=== PATIENT | female | born 2000 | race Caucasian/White ===

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

== ENCOUNTER → 2021-11-17 16:04 | Outpatient (CLI) | payer OTHER, SELFPAY ==
[2021-11-17 17:19] LABS: Basophils # 0.2 K/mm3 (0-0.2); Basophils % 3.8 % (0.1-2.0); Eosinophils # 0.1 K/mm3 (0.0-0.4); Eosinophils % 1.4 % (0.1-12.0); Hematocrit 46.2 % (37.0-47.0); Hemoglobin 14.9 g/dL (12.2-16.2); Lymphocytes % 38.9 % (10-50); Mean Corpuscular HGB Conc 32.2 g/dL (31.8-35.4); Mean Corpuscular Hemoglobin 30.5 pg (27.0-31.2); Mean Corpuscular Volume 94.5 fl (81-99); Mean Platelet Volume 9.2 fl (7.4-10.4); Monocytes # 0.4 K/mm3 (0.1-1.0); Monocytes % 6.7 % (1.7-9.3); Neutrophils # 2.6 K/mm3 (1.8-7.8); Neutrophils % 49.2 % (37.0-80.0); Platelet Count 287 K/mm3 (142-424); Red Blood Count 4.89 M/mm3 (4.20-5.40); Red Cell Distribution Width 12.9 % (11.5-17.5); White Blood Count 5.2 K/mm3 (4.5-13.0)
[2021-11-17 17:38] LABS: Chloride 102 mmol/L (98-107)
[2021-11-17 17:39] LABS: Potassium 4.2 mmoL/L (3.5-5.1); Sodium 138 mmol/L (136-145)
[2021-11-17 17:41] LABS: Alanine Aminotransferase 27 U/L (12-78); Aspartate Amino Transferase 24 U/L (14-36); Blood Urea Nitrogen 7 mg/dl (7-17); Estimated Glomerular Filt Rate 127 ml/min (>60); GFR (African American) 154 ML/MIN (>60)
[2021-11-17 17:42] LABS: Albumin Level 4.8 g/dl (3.5-5.0); Albumin/Globulin Ratio 1.8 (1.1-1.8); Alkaline Phosphatase 62 U/L (38-126); Anion Gap 12.2 mEq/L (5-15); Bilirubin,Total 0.3 mg/dl (0.2-1.3); Calcium 9.2 mg/dl (8.4-10.2); Carbon Dioxide 28 mmol/L (22.0-30.0); Globulin 2.6 g/dL (1.3-3.2); Glucose 93 mg/dl (74-100); Total Protein,Serum 7.4 g/dl (6.3-8.2)
[2021-11-17 17:59] LABS: Free Thyroxine Index 2.2 ug/dL (5.93-13.13); T4 (Thyroxine) 7.9 ug/dl (5.53-11.0); Triiodothryronine (T3) Uptake 28 % (23.5-40.5)
[2021-11-17 18:13] LABS: Thyroid Stimulating Hormone 2.98 uIU/mL (0.465-4.68)
== END ==
PROVIDERS: PCP Internal Medicine Adolescent Medicine; Visit Provider Nurse Practitioner Obstetrics & Gynecology
DX: R53.82 Chronic fatigue, unspecified (principal)
CPT/HCPCS: 36415; 80053; 84436; 84443; 84479; 85025

== ENCOUNTER 2023-05-27 19:18 | Emergency (ER) | payer OTHER, SELFPAY ==
[2023-05-27] VITALS (7 sets, daily range): BP systolic 116–151; BP diastolic 70–107; PULSE 72–97; RESP 12–18; TEMP 36.7–36.8; O2SAT 97–100; BMI 31.1
--- NOTE | 2023-05-27 19:18 | ECG_ITS ---
APPROVED REPORT Exam: Resting ECG HR:92 bpm ECG Measurements Heart Rate 92 AXES NV 138 P 50 QRSd 93 QRS 103 QT 339 T 2 QTc 388 Conclusion SINUS RHYTHM WITH SINUS ARRHYTHMIA RIGHT AXIS DEVIATION [QRS AXIS > 100] ABNORMAL ECG UNCONFIRMED REPORT Electronically signed by : Darron Elliott MD 05/28/2023 17:05:34
--- NOTE | 2023-05-27 19:58 | XR_ITS ---
PROCEDURE INFORMATION: Exam: XR Chest Exam date and time: 05/27/2023 8:10 PM Age: 22 years old Clinical indication: Sternal or substernal pain; Patient HX: HX oncce before, nonsmoker; Additional info: Chest pain TECHNIQUE: Imaging protocol: Radiologic exam of the chest. Views: 2 views. COMPARISON: CR XR RIBS RT MIN 3V W CXR1V 10/03/2019 11:44 PM FINDINGS: Lungs: Unremarkable. No consolidation. Pleural spaces: Unremarkable. No pleural effusion. No pneumothorax. Heart/Mediastinum: Unremarkable. No cardiomegaly. Diaphragm: Mild eventration of the right hemidiaphragm. Findings new. Bones/joints: Unremarkable. IMPRESSION: No evidence of acute intrathoracic abnormality.
[2023-05-27 20:13] LABS: Basophils # 0.1 K/mm3 (0-0.2); Basophils % 0.6 % (0.1-2.0); Eosinophils # 0.1 K/mm3 (0.0-0.4); Eosinophils % 0.9 % (0.1-12.0); Hemoglobin 15.8 g/dL (12.2-16.2); Lymphocytes # 2.9 K/mm3 (0.7-4.5); Lymphocytes % 36.2 % (10-50); Mean Corpuscular HGB Conc 35.1 g/dL (31.8-35.4); Mean Corpuscular Hemoglobin 32.7 pg (27.0-31.2); Mean Corpuscular Volume 93.1 fl (81-99); Mean Platelet Volume 9.4 fl (7.4-10.4); Monocytes # 0.7 K/mm3 (0.1-1.0); Monocytes % 8.9 % (1.7-9.3); Neutrophils # 4.3 K/mm3 (1.8-7.8); Neutrophils % 53.4 % (37.0-80.0); Platelet Count 287 K/mm3 (142-424); Red Blood Count 4.83 M/mm3 (4.20-5.40); Red Cell Distribution Width 12.7 % (11.5-17.5); White Blood Count 8.1 K/mm3 (4.8-10.8)
[2023-05-27 20:18] LABS: Anion Gap 19.1 mEq/L (5-15); Blood Urea Nitrogen 14 mg/dl (7-17); Carbon Dioxide 26 mmol/L (22.0-30.0); Chloride 99 mmol/L (98-107); Creatinine Clearance Estimated 135 mL/min (50-200); Estimated Glomerular Filt Rate 91 ml/min (>60); GFR (African American) 110 ML/MIN (>60); Glucose 100 mg/dl (74-100); Potassium 4.1 mmoL/L (3.5-5.1); Sodium 140 mmol/L (136-145)
[2023-05-27 20:32] LABS: Troponin I < 0.01 ng/ml (0.00-0.034)
--- NOTE | 2023-05-27 20:59 | HMH.EDGENADL ---
Discharge Plan Disposition Patient Disposition: Home, Self-Care Prescriptions Prescriptions: No Action levocetirizine 5 mg tablet 5 mg PO famotidine 20 mg tablet 20 mg PO spironolactone 100 mg tablet 100 mg PO DAILY Qty: 30 5RF hydroxyzine pamoate [Vistaril] 25 mg capsule 25 mg PO TID PRN (Reason: anxiety) Qty: 90 0RF atomoxetine [Strattera] 80 mg capsule 80 mg PO DAILY Qty: 30 1RF Xulane 150-35 mcg/24 hr patch weekly 1 patch transdermal Q7D Qty: 3 11RF Rx Instructions: apply once weekly for 3 weeks of a 4-week cycle Referrals Follow up/Referrals: Darron Elliott MD [Primary Care Provider] - See instructions Activity Restrictions/Add. Instructions Additional Instructions/Restrictions: Your work-up was unremarkable from a cardiopulmonary emergency standpoint. Please follow-up with your primary care doctor as needed. Return to the emergency part with any ongoing or persistent symptoms. Clinical Impressions Clinical Impression: Chest pain Discharge ED Provider: Polo Polanco General Adult HPI General Chief complaint: Chest Pain Stated complaint: Chest pain Time Seen by Provider: 05/27/23 20:50 Mode of Arrival: Wheelchair Source of Information: Patient Limitations: No Limitations Description of Symptoms (Recalled from ER Triage Doc. 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 The pain is constant, aching in nature, rated 10/10, that radiates to both shoulders, upper abdomen, and back. Patient reports that nothing makes the pain better or worse. History of Present Illness HPI narrative: Patient is a 22-year-old female presenting today with sudden chest pain that has since resolved. States this began suddenly about 2 hours prior to my evaluation. She states that it was nonpleuritic in nature did radiate to both shoulders and her back and her symptoms have 100% resolved. No exertional component to this she did feel some shortness of breath with it. No lower extremity swelling no recent immobilizations surgeries prolonged plane or car rides. No history of any DVT or PE. No history from a family standpoint of hypercoagulability. No hemoptysis. She is not on any control pills or any type of hormone replacement therapy. No fevers chills cough etc. No known diagnoses that she is aware of. Related Data Home Medications Medication Instructions Recorded Confirmed famotidine 20 mg tablet 20 mg PO 10/22/22 05/05/23 levocetirizine 5 mg tablet 5 mg PO 10/22/22 05/05/23 Previous Rx's Medication Instructions Recorded spironolactone 100 mg tablet 100 mg PO DAILY #30 tabs 12/16/22 hydroxyzine pamoate 25 mg capsule 25 mg PO TID PRN anxiety #90 caps 02/09/23 (Vistaril) norelgestromin 150 mcg-e.estradiol 1 patch transdermal Q7D #3 ea 03/02/23 35 mcg/24 hr weekly transderm patch (Xulane) atomoxetine 80 mg capsule 80 mg PO DAILY #30 caps 05/05/23 (Strattera) Allergies Allergy/AdvReac Type Severity Reaction Status Date / Time No Known Allergies Allergy Verified 05/05/23 13:30 [facility] Disclaimer: The information contained in this section may have been updated after the patient was seen, as this information can be updated by other users. Medical History (Updated 05/27/23 @ 21:03 by Polo Polanco MD) Attention Deficit Hyperactivity Disorder (ADHD) Generalized anxiety disorder Surgical History History of surgery Hx of tonsillectomy Family History Other Diabetes Heart attack Social History Smoking Status: Never smoker second hand exposure: No alcohol intake: current counseling given: No substance use type: denies use current occupational status: employed Travel in the last 8 weeks: None adopted: No caregiver/support
[2023-05-27 21:13] LABS: D-Dimer 0.78 ug/mL (0.0-0.5)
== END 2023-05-27 22:11 | disposition home or self-care (01) ==
PROVIDERS: Emergency Provider Student in an Organized Health Care Education/Training Program; PCP Internal Medicine Adolescent Medicine
DX: R07.89 Other chest pain (principal); F90.9 Attention-deficit hyperactivity disorder, unspecified type; F41.1 Generalized anxiety disorder
CPT/HCPCS: 71046; 80048; 84484; 85025; 85378; 93005; 99284

== ENCOUNTER → 2023-06-02 09:47 | Outpatient (CLI) | payer OTHER, SELFPAY ==
--- NOTE | 2023-06-02 09:54 | US_ITS ---
FINAL REPORT CLINICAL HISTORY: RUQ pain COMPARISON: None FINDINGS: Sonographic images of the right upper quadrant were obtained. The pancreas is partially obscured.The liver has an unremarkable appearance. Gallstones are present in the gallbladder. There is no evidence of biliary ductal dilatation.The common duct measures 2 mm. Limited images of the right kidney are unremarkable. IMPRESSION: Gallstones are present without evidence of biliary ductal dilatation. Reviewed, Interpreted and Dictated by Kvng Erwin III, MD Transcribed by Ofelia Sauer Authenticated and [facility]
== END ==
PROVIDERS: PCP Internal Medicine Adolescent Medicine; Visit Provider Nurse Practitioner Obstetrics & Gynecology
DX: R10.11 Right upper quadrant pain (principal)
CPT/HCPCS: 76705

== ENCOUNTER → 2023-06-08 13:26 | Outpatient (CLI) | payer OTHER, SELFPAY | PROVIDERS: PCP Internal Medicine Adolescent Medicine; Visit Provider Nurse Practitioner Family | DX: R00.2 Palpitations (principal) | CPT/HCPCS: 93225; 93226 ==

== ENCOUNTER → 2023-06-18 11:35 | Outpatient (CLI) | payer OTHER, SELFPAY ==
[2023-06-18 12:02] LABS: Basophils % 0.3 % (0.1-2.0); Eosinophils # 0.1 K/mm3 (0.0-0.4); Eosinophils % 1.2 % (0.1-12.0); Hematocrit 41.8 % (37.0-47.0); Hemoglobin 14.5 g/dL (12.2-16.2); Lymphocytes # 1.2 K/mm3 (0.7-4.5); Lymphocytes % 30.9 % (10-50); Mean Corpuscular HGB Conc 34.6 g/dL (31.8-35.4); Mean Corpuscular Hemoglobin 32.1 pg (27.0-31.2); Mean Corpuscular Volume 92.7 fl (81-99); Mean Platelet Volume 8.1 fl (7.4-10.4); Monocytes # 0.3 K/mm3 (0.1-1.0); Monocytes % 8.1 % (1.7-9.3); Neutrophils # 2.4 K/mm3 (1.8-7.8); Neutrophils % 59.5 % (37.0-80.0); Platelet Count 257 K/mm3 (142-424); Red Blood Count 4.51 M/mm3 (4.20-5.40); Red Cell Distribution Width 12.6 % (11.5-17.5)
[2023-06-18 12:56] LABS: Alanine Aminotransferase 26 U/L (12-78); Albumin Level 4.8 g/dl (3.5-5.0); Albumin/Globulin Ratio 1.9 (1.1-1.8); Alkaline Phosphatase 41 U/L (38-126); Anion Gap 15.1 mEq/L (5-15); Aspartate Amino Transferase 27 U/L (14-36); Bilirubin,Total 0.2 mg/dl (0.2-1.3); Blood Urea Nitrogen 11 mg/dl (7-17); Calcium 9.7 mg/dl (8.4-10.2); Carbon Dioxide 27 mmol/L (22.0-30.0); Chloride 101 mmol/L (98-107); Estimated Glomerular Filt Rate 91 ml/min (>60); GFR (African American) 110 ML/MIN (>60); Globulin 2.5 g/dL (1.3-3.2); Glucose 110 mg/dl (74-100); Potassium 4.1 mmoL/L (3.5-5.1); Sodium 139 mmol/L (136-145); Total Protein,Serum 7.3 g/dl (6.3-8.2)
[2023-06-18 13:08] LABS: Urine Pregnancy, HCG Qual. Negative (Negative)
== END ==
LOC: LAB 11:36
PROVIDERS: PCP Internal Medicine Adolescent Medicine; Visit Provider Surgery
DX: Z01.812 Encounter for preprocedural laboratory examination (principal); K80.20 Calculus of gallbladder without cholecystitis without obstruction
CPT/HCPCS: 36415; 80053; 81025; 85025

== ENCOUNTER 2023-07-01 08:05 | Day surgery (SDC) | payer OTHER, SELFPAY ==
[2023-06-29 13:24] VITALS: BMI 32.0
[2023-07-01] VITALS (9 sets, daily range): BP systolic 111–141; BP diastolic 66–92; PULSE 72–103; RESP 16–19; TEMP 36.4–36.7; O2SAT 92–100
--- NOTE | 2023-07-01 09:15 | EXP.ANES.CKL ---
[facility] Disclaimer: The information contained in this section may have been updated after the patient was seen, as this information can be updated by other users. Medical History Attention Deficit Hyperactivity Disorder (ADHD) Generalized anxiety disorder Surgical History History of surgery ovarian cysts Hx of tonsillectomy Family History Other Diabetes Heart attack Social History Smoking Status: Never smoker second hand exposure: No alcohol intake: current counseling given: No substance use type: denies use current occupational status: employed Travel in the last 8 weeks: None adopted: No caregiver/support person: No foster care: No household members: none housing: house lives independently: Yes marital status: single number of children: 0 number of grandchildren: 0 education level: high school current occupation: works at [employer] pets and animals: Yes (ukrainian maria) pets and animals: dog(s) Hx Recent Travel: No sexually active: Yes caffeine: Yes physical activity: none leonel/pentecostalism: Religious special leonel needs: No working smoke detector in home: Yes fire extinguisher in home: No carbon monox detector in home: No firearms in home: Yes do you feel safe at home: Yes victim of physical abuse: No victim of emotional abuse: No victim of sexual abuse: No would you like helpful sources: No [facility] Anesthesia Checklist Patient Identification Patient Identification: Arm Band Structural Data Admitted From: Home Planned Operative Procedure/s: Laparoscopic Cholecystectomy Consent for Planned Operative Procedure(s) Verified: Yes Verified Documents: Surgical Consent and History and Physical NPO Status Verified Time NPO: 00:00 Additional verifications Anesthesia Reactions: No Hx Blood Transfusions: No Blood Transfusion Reaction: No Airway Assessment Mallampati Score:: Class II C-Spine Mobility Assessed: Yes TMJ Mobility Assessed: Yes Dentition: Good Dentition Neurological Assessment Level of Consciousness: Awake and Alert Anesthesia Plan Anesthesia Risk discussed: Yes Anesthesia Plan: Verified ASA Class: II Anesthesia Type: General
[2023-07-01 09:28] LABS: Urine Pregnancy, HCG Qual. Negative (Negative)
--- NOTE | 2023-07-01 10:58 | P.OP_ITS ---
Date of procedure: 07/01/23 Pre-op Diagnosis:: Symptomatic cholelithiasis Post-op Diagnosis:: Chronic calculus cholecystitis Procedure performed:: Laparoscopic cholecystectomy Surgeon:: Nick Pierre MD TRAY CASTING MACHINE OPERATOR:: Jared Rosa Anesthesia: GETA Estimated blood loss (mL): 15 Operative findings:: Severe pericholecystic fat stranding Severe infundibular thickening Dome down approach utilized secondary to above findings Operative note:: After informed consent was obtained, the patient was taken to the operating room and placed in the supine position. General anesthesia was induced and the abdomen was prepped and draped in a sterile fashion. After infiltration with local anesthetic an infraumbilical incision was made. A Veress needle was placed in position. The abdomen was insufflated. A 5 mm optical trocar was placed in position. Under direct visualization, a 12 mm trocar was placed in the subxiphoid position and 2 additional 5 mm trocars were placed in the right upper quadrant. The gallbladder was elevated up and over the liver margin. Severe pericholecystic fat stranding with adhesions of omentum, stomach, small bowel, and colon were noted. Careful blunt dissection was utilized to free the gallbladder from these adhesions. As dissection continued in and around the infundibulum severe thickening was encountered. The cystic artery was transected free from surrounding tissue. A clip was placed on the artery and then it was transected distal to the clip with harmonic jalen. Secondary to the above findings the decision was made to proceed with a dome down approach . Harmonic jalen were utilized to dissect the gallbladder away from the liver margin. Endoloops (x 2) were placed at the infundibular margin. The gallbladder was transected distal to the second Endoloop with harmonic jalen. It was then placed in a retrieval bag and removed through the subxiphoid trocar site. The right upper quadrant was thoroughly irrigated. No active bleeding or bile leak was noted. Fascia at the subxiphoid trocar site was reapproximated utilizing the NeoClose device. The remaining trocars were removed. All wounds were irrigated and skin was closed with 4-0 Monocryl in a mattress fashion to facilitate hemostasis. The patient's anesthetic agents were reversed and extubation was completed prior to transfer to recovery in stable condition. Condition: stable Disposition: PACU Specimens:: Gallbladder and contents Complications:: No immediate
--- NOTE | 2023-07-01 11:03 | EXP.ANES.I ---
[facility] Anesthesia Record Part I Anesthesia Record I Intake, IV Amount: 1,200 Hydration: Adequate Estimated blood loss (mL): 15 Urine output (mL): 0 Blood Pressure: 123/66 SaO2: 92 Pulse Rate: 99 Airway Patency: Patent Respiratory Rate: 19 Temperature: 97.9 F Patient is:: Drowsy and Oral/Nasal airway Stable to PACU at:: 11:00
--- NOTE | 2023-07-02 08:06 | P.PNANES_ITS ---
[facility] Anesthesia Record Part II Anesthesia Record Part II Discharge Time: 11:30 Destination: Surgical Day Care (OP Surgery) PACU nurse assessment reviewed?: Yes Patient Condition:: Good Anesthesia Complications:: None Swallowing reflex intact?: Yes Airway Patency: Patent Cyanosis?: No Blood Pressure: 114/83 SaO2: 100 Respiratory Rate: 17 Pulse Rate: 72 Temperature: 98 F Mental Status: Alert & Oriented Pain level:: 4 Nausea and/or vomitting:: None Intake, IV Amount: 0 Hydration: Adequate
[2023-07-02 08:07] VITALS: BP 114/83; PULSE 72; RESP 17; TEMP 36.6; O2SAT 100
== END 2023-07-01 12:20 | disposition home or self-care (01) ==
PROVIDERS: PCP Internal Medicine Adolescent Medicine; Visit Provider Surgery
PROC: 0FT44ZZ Resection of Gallbladder, Percutaneous Endoscopic Approach (ICD-10-PCS; CPT 47562; principal; 2023-07-01 09:30)
DX: K80.10 Calculus of gallbladder with chronic cholecystitis without obstruction (principal)
CPT/HCPCS: 47562; 81025; 96374; J0131; J2405

== ENCOUNTER 2024-03-16 12:32 | Outpatient (CLI) | payer OTHER, SELFPAY ==
[2024-03-16 14:11] LABS: HCG,Quantitative 102 mIU/ml (0-5.42)
[2024-03-18 08:36] LABS: Progesterone 11.3 ng/mL (.)
== END 2024-03-16 23:59 | disposition home or self-care (01) ==
LOC: LAB 12:35
PROVIDERS: PCP Nurse Practitioner Family; Visit Provider Obstetrics & Gynecology
DX: N92.6 Irregular menstruation, unspecified (principal)
CPT/HCPCS: 36415; 84144; 84702

== ENCOUNTER 2024-03-18 10:02 | Outpatient (CLI) | payer OTHER, SELFPAY ==
[2024-03-18 11:33] LABS: HCG,Quantitative 254 mIU/ml (0-5.42)
== END 2024-03-18 23:59 | disposition home or self-care (01) ==
LOC: LAB 10:03
PROVIDERS: PCP Nurse Practitioner Family; Visit Provider Obstetrics & Gynecology
DX: Z34.90 Encounter for supervision of normal pregnancy, unspecified, unspecified trimester (principal)
CPT/HCPCS: 36415; 84702

== ENCOUNTER 2024-04-17 15:40 | Outpatient (CLI) | payer OTHER, SELFPAY | END 2024-04-17 23:59 | disposition home or self-care (01) | LOC: LAB.DROPOF 04-18 10:08 | PROVIDERS: PCP Obstetrics & Gynecology; Visit Provider Obstetrics & Gynecology | DX: Z34.90 Encounter for supervision of normal pregnancy, unspecified, unspecified trimester (principal) | CPT/HCPCS: 87086; 87088; 87186 ==

== ENCOUNTER 2024-04-27 14:40 | Outpatient (CLI) | payer OTHER, SELFPAY ==
[2024-04-27 15:08] LABS: Basophils # 0.1 K/mm3 (0-0.2); Basophils % 0.6 % (0.1-2.0); Eosinophils # 0.1 K/mm3 (0.0-0.4); Eosinophils % 0.8 % (0.1-12.0); Hematocrit 43.8 % (37.0-47.0); Hemoglobin 14.5 g/dL (12.2-16.2); Lymphocytes # 1.7 K/mm3 (0.7-4.5); Mean Corpuscular Hemoglobin 32.1 pg (27.0-31.2); Mean Corpuscular Volume 97.3 fl (81-99); Mean Platelet Volume 9.6 fl (7.4-10.4); Monocytes # 0.6 K/mm3 (0.1-1.0); Monocytes % 6.4 % (1.7-9.3); Neutrophils # 6.8 K/mm3 (1.8-7.8); Neutrophils % 74.2 % (37.0-80.0); Platelet Count 274 K/mm3 (142-424); Red Cell Distribution Width 13.6 % (11.5-17.5); White Blood Count 9.2 K/mm3 (4.8-10.8)
[2024-04-27 16:31] LABS: HIV (1&2) Antibody Rapid NONREACTIVE (NONREACTIVE)
[2024-04-29 07:12] LABS: HCV Ab Non Reactive (Non Reactive); Hepatitis B Surface Antigen Negative (Negative)
[2024-04-29 08:17] LABS: Rubella Antibodies, IgG 1.48 index (Immune >0.99)
[2024-04-29 10:11] LABS: Rapid Plasma Reagin Ab Titer Non Reactive titer (NonRea<1:1)
== END 2024-04-27 23:59 | disposition home or self-care (01) ==
LOC: LAB 14:41
PROVIDERS: PCP Nurse Practitioner Family; Visit Provider Obstetrics & Gynecology
DX: Z34.90 Encounter for supervision of normal pregnancy, unspecified, unspecified trimester (principal)
CPT/HCPCS: 36415; 85025; 86593; 86762; 86803; 86850; 87340; 87389

== ENCOUNTER 2024-07-06 10:56 | Outpatient (CLI) | payer OTHER, SELFPAY ==
[2024-07-06 11:19] LABS: Basophils % 0.3 % (0.1-2.0); Eosinophils # 0.1 K/mm3 (0.0-0.4); Eosinophils % 0.7 % (0.1-12.0); Hematocrit 37.6 % (37.0-47.0); Hemoglobin 12.8 g/dL (12.2-16.2); Lymphocytes # 1.6 K/mm3 (0.7-4.5); Mean Corpuscular Hemoglobin 31.5 pg (27.0-31.2); Mean Corpuscular Volume 92.9 fl (81-99); Mean Platelet Volume 10.1 fl (7.4-10.4); Monocytes # 0.5 K/mm3 (0.1-1.0); Neutrophils # 7.5 K/mm3 (1.8-7.8); Neutrophils % 77.9 % (37.0-80.0); Platelet Count 222 K/mm3 (142-424); Red Blood Count 4.05 M/mm3 (4.20-5.40); Red Cell Distribution Width 13.2 % (11.5-17.5); White Blood Count 9.6 K/mm3 (4.8-10.8)
[2024-07-06 11:45] LABS: Alanine Aminotransferase 18 U/L (12-78); Albumin Level 3.7 g/dl (3.5-5.0); Albumin/Globulin Ratio 1.6 (1.1-1.8); Alkaline Phosphatase 56 U/L (38-126); Anion Gap 14.7 mEq/L (5-15); Aspartate Amino Transferase 23 U/L (14-36); Bilirubin,Total 0.3 mg/dl (0.2-1.3); Blood Urea Nitrogen 6 mg/dl (7-17); Calcium 9.5 mg/dl (8.4-10.2); Carbon Dioxide 23 mmol/L (22.0-30.0); Chloride 103 mmol/L (98-107); Estimated Glomerular Filt Rate 154 ml/min (>60); GFR (African American) 187 ML/MIN (>60); Globulin 2.3 g/dL (1.3-3.2); Glucose 144 mg/dl (74-100); Potassium 3.7 mmoL/L (3.5-5.1); Sodium 137 mmol/L (136-145); Uric Acid 3.9 mg/dl (2.5-6.2)
[2024-07-06 12:10] LABS: Activated Partial Thrombo Time 26.8 seconds (22.8-30.6); Fibrinogen 449 mg/dL (229.9-363.5); INR 0.89 (0.9-1.1); Prothrombin Time 10.1 seconds (10.1-12.5)
[2024-07-06 12:27] LABS: Total Volume,Urine 1950 mL (600-1600)
[2024-07-06 14:00] LABS: Total Protein 24 Hour,Urine 312 mg/24 hr (40-90)
== END 2024-07-06 23:59 | disposition home or self-care (01) ==
LOC: LAB 10:56
PROVIDERS: PCP Nurse Practitioner Family; Visit Provider Obstetrics & Gynecology
DX: O13.9 Gestational [pregnancy-induced] hypertension without significant proteinuria, unspecified trimester (principal)
CPT/HCPCS: 80048; 80053; 84155; 84450; 84460; 84550; 85025; 85384; 85610; 85730

== ENCOUNTER 2024-07-13 14:45 | Outpatient (CLI) | payer OTHER, SELFPAY ==
--- NOTE | 2024-07-13 14:45 | US_ITS ---
PROCEDURE: US OB /MATERNAL DETAIL CLINICAL INDICATION: 20 week anatomy scan-US OB Complete COMPARISON: No exams were available for comparison FINDINGS: Transabdominal sonographic images of the pelvis were obtained. From her established due date she is 20 weeks 6 days. Single viable intrauterine gestation. Breech position. Placenta: Anteriorplacenta grade 1. There is an average amount of fluid. The cervix appears satisfactory. Closed and measuring 3.64 cm in length. Complete survey performed and was unremarkable on the submitted images as in PACS. No discrete anomalies identified on survey imaging by technologist. Active fetus. Three-vessel cord with satisfactory umbilical cord insertion. 4- chamber heart noted. Situs, aortic arch, three-vessel view appear normal. Survey of brain & ventricles Unremarkable. Cerebellum, thalamus, choroid plexus, cisterna magna appear normal. Face and neck survey unremarkable. Profile, nasion, lips and nose appeared normal. Diaphragm and chest views unremarkable. Abdomen: Both kidneys noted and unremarkable. Stomach and bladder noted and satisfactory. Minimal bilateral renal pelvis dilation measuring up to 3.5 mm. Spine: Survey of the spine satisfactory with no anomalies identified nor imaged. Cervical, thoracic, lower spine appear normal. Both arms and legs noted. Amniotic Fluid: Adequate. MVP 4.25 cm Measurements: Average ultrasound age 21weeks 5days. Estimated due date by ultrasound age 0411/18/2024. Estimated weight 442g BPD = 21weeks 3days HC = 21weeks 4days AC = 22weeks 2days FL = 21weeks 1day Growth Percentile= 86 Heart Rate = 155bpm Cerebellum = 21weeks 3days Humerus = 20weeks 6days HC/AC is 1.11 FL/BPD is 0.69 FL/AC is 0.2 IMPRESSION: 1. Viable fetus in the breech presentation with an anterior placenta grade 1. 2. The fluid is within normal limits with an MVP 4.25 cm 3. Anatomical scan appears normal. Cardiac views were incomplete and should be redone began in 2-3 weeks. 4. There is minimal bilateral renal pelvis dilation and since this is less than 4 mm, follow-up is not necessary. 5. biometry is consistent with the dates. Dictated by: Joe Reinoso MD 07/14/2024 11:02 Joe Reinoso MD in [place] 07/14/2024 11:02
== END 2024-07-13 23:59 | disposition home or self-care (01) ==
LOC: RAD 14:45
PROVIDERS: PCP Nurse Practitioner Family; Visit Provider Obstetrics & Gynecology
DX: O99.212 Obesity complicating pregnancy, second trimester (principal); Z36.3 Encounter for antenatal screening for malformations; Z3A.20 20 weeks gestation of pregnancy
CPT/HCPCS: 76811

== ENCOUNTER 2024-07-28 13:33 | Outpatient (CLI) | payer OTHER, SELFPAY ==
--- NOTE | 2024-07-28 13:33 | US_ITS ---
PROCEDURE: US OB >= 14 WEEKS FETUS CLINICAL INDICATION: 2-3 week repeat anatomy, cardiac views COMPARISON: US US OB /MATERNAL DETAIL from 07/13/2024 FINDINGS: Transabdominal sonographic images of the pelvis were obtained. The following parameters are obtained: From her established due date she is 23weeks 0 days Viable fetus in the cephalic presentation with an anterior placenta grade 1. The cervix measures 4.07 cm heart rate: 147bpm bpm. Amniotic fluid: MVP 3.44 cm No obvious anomalies evident. profile seen, stomach, bladder, kidneys, three-vessel cord, four chamber heart appear normal. cardiac scan: Four-chamber heart, LVOT, RVOT, three-vessel view appear normal. IMPRESSION: 1. Viable fetus in the cephalic presentation with an anterior placenta grade 1. 2. The fluid is within normal limits with an MVP 3.44 cm. 3. Limited anatomical scan appears normal. Complete views of the heart were seen today and the cardiac scan appears normal. 4. The previously described mild renal pelvis dilatation is not seen today. Dictated by: Joe Reinoso MD 07/28/2024 18:08 Joe Reinoso MD in [place] 07/28/2024 18:08
== END 2024-07-28 23:59 | disposition home or self-care (01) ==
LOC: RAD 13:33
PROVIDERS: PCP Nurse Practitioner Family; Visit Provider Obstetrics & Gynecology
DX: O10.912 Unspecified pre-existing hypertension complicating pregnancy, second trimester (principal); Z3A.23 23 weeks gestation of pregnancy
CPT/HCPCS: 76805

== ENCOUNTER 2024-08-24 15:24 | Outpatient (CLI) | payer OTHER, SELFPAY ==
[2024-08-24 16:41] LABS: Basophils % 0.2 % (0.1-2.0); Eosinophils # 0.1 K/mm3 (0.0-0.4); Eosinophils % 0.8 % (0.1-12.0); Hematocrit 34.8 % (37.0-47.0); Hemoglobin 11.5 g/dL (12.2-16.2); Lymphocytes # 1.3 K/mm3 (0.7-4.5); Lymphocytes % 15.1 % (10-50); Mean Corpuscular Hemoglobin 29.7 pg (27.0-31.2); Mean Corpuscular Volume 89.9 fl (81-99); Mean Platelet Volume 11.9 fl (7.4-10.4); Monocytes # 1.1 K/mm3 (0.1-1.0); Monocytes % 12.5 % (1.7-9.3); Neutrophils # 5.9 K/mm3 (1.8-7.8); Platelet Count 247 K/mm3 (142-424); Red Blood Count 3.87 M/mm3 (4.20-5.40); Red Cell Distribution Width 12.4 % (11.5-17.5); White Blood Count 8.4 K/mm3 (4.8-10.8)
[2024-08-24 16:52] LABS: Glucose 1 Hour 139 mg/dL (74-100)
[2024-08-25 12:19] LABS: RPR W/RFX Titers Nonreactive (Nonreactive)
== END 2024-08-24 23:59 | disposition home or self-care (01) ==
LOC: LAB 15:25
PROVIDERS: PCP Nurse Practitioner Family; Visit Provider Obstetrics & Gynecology
DX: Z34.90 Encounter for supervision of normal pregnancy, unspecified, unspecified trimester (principal)
CPT/HCPCS: 36415; 82947; 85025; 86592

== ENCOUNTER 2024-08-28 11:53 | Outpatient (CLI) | payer OTHER, SELFPAY ==
[2024-08-28 11:58] VITALS: BMI 40.4
[2024-08-28 12:16] VITALS: BP 138/78; PULSE 113; RESP 19; TEMP 36.6; O2SAT 96; BMI 40.6
[2024-08-28 12:17] LABS: Microscopic, Urine URINE MICROSCOPIC (MICROSCOPIC)
[2024-08-28 12:23] LABS: Appearance,Urine CLEAR (Clear); Bilirubin,Urine Negative (Negative); Blood, Urine Negative (Negative); Color,Urine YELLOW (Yellow); Glucose,Urine (UA) TRACE (Negative); Ketones,Urine Negative (Negative); Leukocyte Esterase,Urine Negative (Negative); Nitrate,Urine Negative (Negative); PH,Urine 7.5 (5.0-8.5); Protein,Urine TRACE (Negative); Urobilinogen,Urine 0.2 EU/dl (0.2)
[2024-08-28 12:31] VITALS: BP 132/84; PULSE 102; RESP 20; O2SAT 95
[2024-08-28 12:46] VITALS: BP 131/81; PULSE 102; RESP 17; O2SAT 98
[2024-08-28 12:46] LABS: Bacteria,Urine Trace /lpf
[2024-08-28] MEDS: ACETAMINOPHEN 500MG TAB 1000 MG PO (12:48)
[2024-08-28 12:57] LABS: Basophils % 0.3 % (0.1-2.0); Eosinophils % 0.5 % (0.1-12.0); Hematocrit 33.9 % (37.0-47.0); Hemoglobin 11.5 g/dL (12.2-16.2); Lymphocytes # 1.1 K/mm3 (0.7-4.5); Lymphocytes % 15.2 % (10-50); Mean Corpuscular HGB Conc 33.9 g/dL (31.8-35.4); Mean Corpuscular Hemoglobin 29.6 pg (27.0-31.2); Mean Corpuscular Volume 87.4 fl (81-99); Mean Platelet Volume 12.1 fl (7.4-10.4); Monocytes # 0.9 K/mm3 (0.1-1.0); Monocytes % 11.5 % (1.7-9.3); Neutrophils # 5.4 K/mm3 (1.8-7.8); Neutrophils % 71.4 % (37.0-80.0); Platelet Count 227 K/mm3 (142-424); Red Blood Count 3.88 M/mm3 (4.20-5.40); Red Cell Distribution Width 12.5 % (11.5-17.5); White Blood Count 7.5 K/mm3 (4.8-10.8)
[2024-08-28 13:08] LABS: Albumin Level 3.6 g/dl (3.5-5.0); Chloride 106 mmol/L (98-107); Potassium 3.5 mmoL/L (3.5-5.1); Sodium 135 mmol/L (136-145)
[2024-08-28 13:32] LABS: Activated Partial Thrombo Time 27.7 seconds (22.5-28.5); Fibrinogen 486 mg/dL (208.1-352.0); INR 0.88 (0.9-1.1); Prothrombin Time 9.8 seconds (9.2-12.1)
[2024-08-28 13:50] LABS: Barbiturates Screen,Urine Negative ng/ml (<200); Benzodiazepines Screen,Urine Negative ng/ml (<200)
[2024-08-28 13:51] LABS: Amphetamine/Metha Screen,Urine Negative ng/ml (<1000)
[2024-08-28 13:52] LABS: Cannabinoid Screen,Urine Negative ng/ml (<50); Methadone Screen,Urine Negative ng/ml (<300)
[2024-08-28 13:53] LABS: Alanine Aminotransferase 17 U/L (12-78); Alkaline Phosphatase 74 U/L (38-126); Anion Gap 12.5 mEq/L (5-15); Aspartate Amino Transferase 20 U/L (14-36); Blood Urea Nitrogen 7 mg/dl (7-17); Carbon Dioxide 20 mmol/L (22.0-30.0); Creatinine Clearance Estimated 132 mL/min (50-200); Estimated Glomerular Filt Rate 153 ml/min (>60); GFR (African American) 185 ML/MIN (>60)
[2024-08-28 13:53] LABS: Cocaine Screen,Urine Negative ng/ml (<300)
[2024-08-28 13:54] LABS: Opiate Screen,Urine Negative ng/ml (<300)
[2024-08-28 13:54] LABS: Albumin/Globulin Ratio 1.4 (1.1-1.8); Bilirubin,Total 0.1 mg/dl (0.2-1.3); Globulin 2.6 g/dL (1.3-3.2); Glucose 108 mg/dl (74-100); Total Protein,Serum 6.2 g/dl (6.3-8.2)
[2024-08-28 13:55] LABS: Phencyclidine Screen,Urine Negative ng/ml (<25)
[2024-08-28 15:41] LABS: Creatinine,Urine Random 99 mg/dL (Not Estab.)
[2024-08-28 17:15] LABS: Uric Acid 3.8 mg/dl (2.5-6.2)
== END 2024-08-28 14:36 | disposition home or self-care (01) ==
LOC: OBOUT 11:55 → OB 11:57
PROVIDERS: PCP Nurse Practitioner Family; Visit Provider Obstetrics & Gynecology
DX: O10.912 Unspecified pre-existing hypertension complicating pregnancy, second trimester (principal); Z3A.27 27 weeks gestation of pregnancy
CPT/HCPCS: 36415; 80053; 80307; 81001; 82570; 84156; 84550; 85025; 85384; 85610; 85730; G0463

== ENCOUNTER 2024-09-06 07:59 | Outpatient (CLI) | payer OTHER, SELFPAY ==
[2024-09-06 09:38] LABS: Glucose,Fasting 95 mg/dl (74-100)
[2024-09-06 10:38] LABS: Glucose 1 Hour 197 mg/dL (74-100)
[2024-09-06 10:45] LABS: Glucose 2 Hour 197 mg/dL (74-100)
[2024-09-06 12:03] LABS: Glucose 3 Hour 56 mg/dL (74-100)
--- NOTE | 2024-09-06 14:50 | US_ITS ---
PROCEDURE: US OB BIOPHYSICAL PROFILE CLINICAL INDICATION: Chronic Hypertension COMPARISON: US US OB /MATERNAL DETAIL from 07/13/2024 US US OB >= 14 WEEKS FETUS from 07/28/2024 FINDINGS: Transabdominal sonographic images of the uterus were obtained. From her established due date she is 28weeks 5days. The following parameters are obtained: Viable Fetus in the cephalic presentation with an anterior placenta grade 1. Average ultrasound age is 29weeks 5days Estimated weight 1,439g, 3 lb 3 oz The cervix measures 3.33 cm. Measurements: heart Rate = 140bpm BPD = 29weeks 1day, 51 percentile HC = 29weeks 4days, 43 percentile AC = 29weeks 6days, 76 percentile FL = 29weeks 6days, 65 percentile HC/AC is 1.06 FL/BPD is 0.78 FL/AC is 0.22 74 percentile Amniotic fluid index: 13.96cm, MVP 4.73 cm Qualitative AFV:2 Breathing movements: 2 Gross Body Movements: 2 Tone: 2 Biophysical profile score: 8 No obvious anomalies evident.Kidneys, profile, stomach, bladder, four-chamber heart, three-vessel cord appear normal. There continues to be minimal renal pelvis dilation measuring 4.2 mm and 3.9 mm. IMPRESSION: 1. Viable fetus in the cephalic presentation with an anterior placenta grade 1. 2. The fluid is within normal limits with an amniotic fluid index 13.96 cm, MVP 4.73 cm. 3. Biophysical profile 8/8 with good breathing movement and movement seen. 4. There has been good interval growth with the fetus currently 74th percentile. 5. Limited anatomical scan appears normal. 6. There continues to be minimal bilateral renal pelvis dilation measuring 4.2 mm and 3.9 mm. Dictated by: Joe Reinoso MD 09/06/2024 16:25 Joe Reinoso MD in [facility] 09/06/2024 16:25
== END 2024-09-06 23:59 | disposition home or self-care (01) ==
LOC: RAD 08:01
PROVIDERS: PCP Nurse Practitioner Family; Visit Provider Obstetrics & Gynecology
DX: O10.913 Unspecified pre-existing hypertension complicating pregnancy, third trimester (principal); O99.213 Obesity complicating pregnancy, third trimester; Z3A.28 28 weeks gestation of pregnancy
CPT/HCPCS: 36415; 76816; 76819; 82951

== ENCOUNTER 2024-09-16 03:55 | Emergency (ER) | payer OTHER, SELFPAY ==
[2024-09-16 03:57] VITALS: BP 132/96; PULSE 128; RESP 20; TEMP 36.9; O2SAT 98; BMI 41.5
[2024-09-16 04:12] VITALS: BP 138/83; PULSE 122; RESP 22; O2SAT 97
[2024-09-16 04:15] LABS: Coronavirus 19, PCR Not Detected (NotDetected); Influenza A, PCR Not Detected (NotDetected); Influenza B, PCR Not Detected (NotDetected)
--- NOTE | 2024-09-16 04:15 | ED_ITS ---
Discharge Plan Disposition Patient Disposition: Home, Self-Care Condition: Good Prescriptions Prescriptions: No Action Classic 28 mg iron- 800 mcg tablet 1 tab PO DAILY cetirizine 10 mg tablet 10 mg PO DAILY amoxicillin-pot clavulanate 875-125 mg tablet 1 tab PO BID Patient Comments: TAKE ONE TABLET BY MOUTH EVERY TWELVE HOURS FOR 10 DAYS -- FINISH ALL MEDICINE -- --TAKE WITH FOOD-- glyburide 2.5 mg tablet 2.5 mg PO DAILY Qty: 30 4RF Rx Instructions: Take 30 minutes before breakfast or first meal of the day labetalol 200 mg tablet 200 mg PO Q12H Qty: 120 1RF (DME) blood-glucose meter [Accu-Chek Guide Glucose Meter] Misc See Rx Instructions .ROUTE .MEDSUPPLY Qty: 1 0RF Rx Instructions: 4x daily (DME) lancing device with lancets [Accu-Chek Soft Dev Lancets] Kit See Rx Instructions .ROUTE .MEDSUPPLY Qty: 1 4RF Rx Instructions: 4x daily (DME) Accu-Chek SmartView Test Strip Strip See Rx Instructions .ROUTE .MEDSUPPLY Qty: 100 2RF Rx Instructions: 4x daily Referrals Follow up/Referrals: Cristy Thornton APRN [Primary Care Provider] - See instructions Activity Restrictions/Add. Instructions Additional Instructions/Restrictions: You were evaluated in the ER and are appropriate for discharge at this time. Go directly to OB triage for further OB evaluation. Drink plenty of fluids including water, Gatorade, Pedialyte. Follow-up with OB as scheduled, continue all home medications as previously prescribed. Return to the ER with new, worsening, or otherwise concerning symptoms Clinical Impressions Clinical Impression: Nausea, vomiting, and diarrhea, and not yet delivered in third trimester, Chronic hypertension affecting , Proteinuria Instructions Patient Instructions: DI for Nausea -- Adult Print Language Print Language: Uzbek Discharge ED Provider: Jason Mann Adult HPI General Chief complaint: Nausea/Vomiting/Diarrhea Stated complaint: vomiting, 30 wks antepartum Time Seen by Provider: 09/16/24 04:00 Mode of Arrival: Ambulatory Source of Information: Patient Limitations: No Limitations Description of Symptoms (Recalled from ER Triage Doc. by RN): Pt presents to ED for N/V/D X 5 hours. Pt is 30 weeks w/ hx of gestational diabetes and hypertension. Pt's mother states OB referred them to ED. Pt states she has stomach pain but thinks it's from vomiting. Rates pain 01/09. informed. Pt is A&O*4 and family is bedside. History of Present Illness HPI narrative: 24-year-old female G1, P0 30 weeks presents to the ER for concerns of vomiting since approximately 5 to 6 hours prior to arrival. Patient reports she has had multiple episodes of emesis, initially it was food she had just eaten, since then it has been clear mucus. Nonbloody, nonbilious. She does report episodes of diarrhea since that time as well, nonbloody, nonmelanotic. Patient reports she has her chronic pains but no specific new abdominal pain. She describes generalized discomfort in her stomach as nausea. She denies cramping, contractions, or back pain. She has no dysuria or hematuria, no vaginal bleeding or fluid leakage. She has no fevers or chills, no headache or dizziness, no numbness tingling or weakness, she states she is currently on Augmentin for cough and only has a few doses left of that. Reports no significant change in her upper respiratory symptoms. Augmentin was prescribed without a chest x-ray from primary care. Patient does have a history of cholecystectomy. No medications taken prior to arrival. Patient reports she took her home labetalol approximately 4 hours prior to having vomiting. She has not yet started the glyburide that was prescribed at her last appointment. Related Data Home Medications ?Medication ?Instructions ?Recorded ?Confirmed vits no.126-ferrous fum 1 tab PO DAILY 04/17/24 09/16/24 28 mg iron-folic acid 800 mcg tablet (Classic ) cetirizine 10 mg tablet 10 mg PO DAILY 05/31/24 09/16/24 amoxicillin 875 mg-potassium 1 tab PO BID 09/06/24 09/16/24 clavulanate 125 mg tablet Previous Rx's ?Medication ?Instructions ?Recorded labetalol 200 mg tablet 200 mg PO Q12H #120 tabs 09/04/24 blood sugar diagnostic (Accu-Chek #100 ea 09/06/24 SmartView Test Strips) blood-glucose meter (Accu-Chek #1 ea 09/06/24 Guide Glucose Meter) lancing device with lancets kit #1 ea 09/06/24 (Accu-Chek Softclix Lancing Device+Lancets kit) glyburide 2.5 mg tablet 2.5 mg PO DAILY #30 tabs 09/13/24 Allergies Allergy/AdvReac Type Severity Reaction Status Date / Time No Known Allergies Allergy Verified 09/13/24 12:54 [facility] Disclaimer: The information contained in this section may have been updated after the patient was seen, as this information can be updated by other users. Medical History (Updated 09/16/24 @ 04:57 by Jason Mann MD) Gestational diabetes mellitus (GDM) affecting , antepartum Chronic hypertension affecting Maternal obesity syndrome, antepartum Attention Deficit Hyperactivity Disorder (ADHD) Generalized anxiety disorder Surgical History History of laparoscopic cholecystectomy History of surgery Hx of tonsillectomy Family History Other Diabetes Heart attack Social History Smoking Status: Former smoker tobacco type: e-cigarettes second hand exposure: No alcohol intake: current alcohol intake frequency: a few times a month counseling given: No substance use type: denies use current occupational status: employed Travel in the last 8 weeks: None adopted: No caregiver/support person: No foster care: No household members: none housing: house lives independently: Yes marital status: single number of children: 0 number of grandchildren: 0 education level: high school current occupation: works at [employer] pets and animals: Yes (slovak maria) pets and animals: dog(s) Hx Recent Travel: No sexually active: Yes caffeine: Yes physical activity: none leonel/baptism: Yarsanism special leonel needs: No working smoke detector in home: Yes fire extinguisher in home: No carbon monox detector in home: No firearms in home: Yes do you feel safe at home: Yes victim of physical abuse: No victim of emotional abuse: No victim of sexual abuse: No would you like helpful sources: No Other Medical History Have you received the Flu Vaccine for this season: No Have you received the Pneumonia Vaccine: No ROS Obtained: Yes Systems reviewed as appropriate & no additional complaints except as documented per HPI Physical Exam General General appearance: alert and in no apparent distress Head Head exam: atraumatic and normocephalic Eye Eye exam: Present PERRL and EOMI ENT ENT exam: Present mucous membranes moist Neck Neck exam: Present normal inspection and full ROM Chest Chest inspection: Present symmetric chest wall rise Respiratory Respiratory exam: Present normal lung sounds bilaterally; Absent respiratory distress, wheezes or stridor Cardiovascular Cardiovascular exam: Present normal rhythm and tachycardia Abdominal Exam Abdominal exam: Present soft; Absent distention, tenderness, guarding or rebound Comment: Gravid abdomen, uterus above the umbilicus Extremities Exam Extremities exam: Present full ROM; Absent edema or calf tenderness Neurological Exam Neurological exam: Present alert and oriented X3; Absent motor sensory deficit Psychiatric Psychiatric exam: Present normal affect and normal mood Skin Skin exam: Present warm and dry Medical Decision Making Medical Records Medical records reviewed: Yes I reviewed the patient's medical records. Screening: Per USPSTF and CDC recommendations, given the prevalence of disease in our region, it is our hospital?s policy to screen for HIV and viral Hepatitis for all patients aged 18 and over and those with ongoing risk factors. MR Comment: Most recent OB note from 09/13/2024, 3 days ago, reviewed by me. Patient received Tdap booster. She was 29 weeks 5 days. She had reactive NST at that visit. Plan to continue NSTs until 32 weeks, weekly. Patient has chronic hypertension taking labetalol 200 mg p.o. every 12 hours, gestational diabetes starting glyburide. Charles Inquiry Pt receiving controlled substance: No Vital Signs: 09/16/24 03:57 09/16/24 04:12 09/16/24 04:55 Temperature 98.4 F 98.3 F Temperature Source Oral Oral Pulse Rate 122 H 103 H Pulse Rate [Left] 128 H Respiratory Rate 20 22 15 Blood Pressure 138/83 138/83 Blood Pressure [Right Arm] 132/96 H Blood Pressure Mean [Right Arm] 108 Blood Pressure Position Sitting 02 Sat by Pulse Oximetry 98 97 97 Oxygen Delivery Method Room Air Room Air Room Air Lab Data Lab Results 09/16/24 04:03: Urine Color Yellow, Urine Appearance Clear, Urine pH 6.0, Ur Specific [place] >= 1.030, Urine Protein 1+ A, Urine Glucose (UA) Trace, Urine Ketones 1+, Urine Blood Negative, Urine Nitrate Negative, Urine Bilirubin Negative, Urine Urobilinogen 0.2, Ur Leukocyte Esterase Negative, Urine RBC None, Urine WBC Occasional, Ur Squamous Epith Cells 10-20, Urine Bacteria Trace 09/16/24 04:07: WBC 13.3 H, RBC 4.55, Hgb 12.8, Hct 38.6, MCV 84.8, MCH 28.1, MCHC 33.2, RDW 12.7, Plt Count 315, MPV 12.3 H, Neut % (Auto) 88.0 H, Lymph % (Auto) 3.7 L, [place] % (Auto) 7.1, Eos % (Auto) 0.1, Baso % (Auto) 0.2, Neut # (Auto) 11.7 H, Lymph # (Auto) 0.5 L, [place] # (Auto) 0.9, Eos # (Auto) 0.0, Baso # (Auto) 0.0, Sodium 136, Potassium 4.4, Chloride 108 H, Carbon Dioxide 16 L, A nion Gap 16.4 H, BUN 10, Creatinine 0.40 L, Estimated Creat Clear 165, Estimated GFR 198, Est GFR ( Amer) 239, Glucose 127 H, Lactate 1.9, Calcium 8.9, Total Bilirubin 0.2, AST 30, ALT 28, Alkaline Phosphatase 98, Total Protein 7.2, Albumin 4.0, Globulin 3.2, Albumin/Globulin Ratio 1.3, Lipase 128, SARS-CoV-2 (PCR) Not detected, Influenza A Untype (PCR) Not detected, Influenza Type B (PCR) Not detected 09/16/24 04:07 09/16/24 04:07 Orders (Tests/Meds): ED MEDICATIONS Discontinued Medications Generic Name Dose Route Start Last Admin Trade Name Freq PRN Reason Stop Dose Admin Doxylamine Succinate/Pyridoxine 1 tab 09/16/24 04:05 09/16/24 04:22 Doxylamine 10mg/Pyridoxine 10mg Tablet PO 09/16/24 04:06 1 tab ONCE ONE Administration Lactated Ringer's 500 mls @ 999 mls/hr 09/16/24 04:04 09/16/24 04:16 Lactated Ringer's 500ml IV 09/16/24 04:34 999 mls/hr .Q31M ONE Administration ORDERS Category Date Time Status POCUS Point of Care (ER Only) Stat Exams 09/16/24 04:03 Ordered CBC w/Auto Diff [Complete Blood Count Auto Diff] Stat Lab 09/16/24 04:07 Received CMP [Comprehensive Metabolic Panel] Stat Lab 09/16/24 04:07 Received Lactic Acid Stat Lab 09/16/24 04:07 Received Lipase Stat Lab 09/16/24 04:07 Received Rapid PCR Covid and Flu A/B Stat Lab 09/16/24 04:07 Received Urinalysis and Microscopic Stat Lab 09/16/24 04:03 Ordered Medical Decision Narrative: In summary, this 24-year-old female G1, P0 with known gestational diabetes, chronic hypertension in , ADHD, all of which are comorbidities of current condition and may not be at goal therapy presents to the emergency department today with vomiting. On initial evaluation patient is tachycardic but otherwise hemodynamically stable, blood pressure on arrival 132/96 consistent with her known hypertension, abdomen is soft, nontender, gravid with uterus above the umbilicus, benign abdomen on exam, no peripheral edema, no calf tenderness or swelling. Differential diagnosis includes but is not limited to viral syndrome, electrolyte abnormality, dehydration, pancreatitis, lactic acidosis, also considered urinary tract infection though this should be much less likely since patient is actively on Augmentin, considered proteinuria, glucosuria, HELLP, mesenteric adenitis less likely since patient has no pain, appendicitis less likely since patient has no pain or fever. Based on these concerns, I ordered serum labs, urine study, and performed vdxoh-ma-ypyx ultrasound. I considered radiographic studies but do not believe other imaging is indicated at this time since patient has a benign abdomen and the risk of radiation outweighs the benefit at this time with her extremely reassuring exam. Patient received LR, doxylamine/pyridoxine initially for treatment. [id number]-ef-[id number] ultrasound performed by me at bedside demonstrates live intrauterine , fetus is active, heart rate 156, no abnormalities appreciated. See procedure note. Labs personally reviewed demonstrate leukocytosis WBC 13.3, up from 7.5 on 08/28/2024, no anemia, platelets normal at 315 reassuring against HELLP. Patient has mildly elevated anion gap, possibly related to ketosis, BUN and creatinine reassuring against kidney dysfunction, lactate normal at 1.9, lipase normal at 128. Liver enzymes normal. Urinalysis negative for findings of infection but patient does have 1+ protein, previously she has had negative or only trace protein. Also has 1+ ketones consistent with her emesis and diarrhea as well as her mild anion gap. With her elevated blood pressure the proteinuria increases my concern for preeclampsia. Patient's tachycardia has improved with IV fluids and she is drinking water, tolerating oral intake in the ER at this time. Heart rate 99-105. She is resting comfortably. I called OB on-call and discussed this case with Dr. Aranda including my concern for patient having proteinuria and hypertension in the ER though she is not having abdominal pain, no severe signs or symptoms such as HELLP, headache, altered mental status, or peripheral swelling, and that labs are overall otherwise reassuring aside from evidence of mild ketosis. She recommended that once I have cleared the patient that the patient go up to OB triage for further evaluation, Dr. Aranda indicated she would further consider her blood pressure and proteinuria when the patient was upstairs. She did not recommend any intervention for this at this time. From my standpoint patient is appropriate for discharge. She is resting comfortably with reassuring labs and tolerating oral intake with improved vitals. Patient was given instructions on symptomatic management, follow up instructions including to go directly to OB triage, and return precautions for the emergency department. Patient and family at bedside indicated understanding and patient was discharged in stable condition. Procedures Miscellaneous Procedure Procedure Performed: Limited OB ultrasound Indication: Known Identified structures: [-Uterus -Left adnexa -Right adnexa -Pouch of [place]] Findings: Uterus: Definitive live intrauterine FHR: 156 Right adnexa: Normal Left adnexa: Normal [place]: Free fluid absent Impression: -IUP: Present - heart rate: 156 -Ectopic : Absent -Free fluid: Absent Images were saved to permanent archive The study was technically adequate CPT Transabdominal: 66386-78 This study was performed by me, and I personally interpreted all images/videos. Based on my clinical judgement, these images were adequate and did not necessitate further imaging. Critical Care Critical Care Time Critical Care Time: No
[2024-09-16 04:16] LABS: Basophils % 0.2 % (0.1-2.0); Eosinophils % 0.1 % (0.1-12.0); Hematocrit 38.6 % (37.0-47.0); Hemoglobin 12.8 g/dL (12.2-16.2); Lymphocytes # 0.5 K/mm3 (0.7-4.5); Lymphocytes % 3.7 % (10-50); Mean Corpuscular HGB Conc 33.2 g/dL (31.8-35.4); Mean Corpuscular Hemoglobin 28.1 pg (27.0-31.2); Mean Corpuscular Volume 84.8 fl (81-99); Mean Platelet Volume 12.3 fl (7.4-10.4); Monocytes # 0.9 K/mm3 (0.1-1.0); Monocytes % 7.1 % (1.7-9.3); Neutrophils # 11.7 K/mm3 (1.8-7.8); Platelet Count 315 K/mm3 (142-424); Red Blood Count 4.55 M/mm3 (4.20-5.40); Red Cell Distribution Width 12.7 % (11.5-17.5); White Blood Count 13.3 K/mm3 (4.8-10.8)
[2024-09-16] MEDS: RINGERS SOLUTION,LACTATED 500 ML 999 ML IV (04:16)
--- NOTE | 2024-09-16 04:20 | PC.NURSE ---
pt ambulatory with steady gait to restroom to provide urine sample
[2024-09-16 04:21] LABS: Chloride 108 mmol/L (98-107); Potassium 4.4 mmoL/L (3.5-5.1); Sodium 136 mmol/L (136-145)
[2024-09-16] MEDS: DOXYLAMINE 10MG/PYRIDOXINE 10MG TABLET 1 TAB PO (04:22)
[2024-09-16 04:23] LABS: Alanine Aminotransferase 28 U/L (12-78); Aspartate Amino Transferase 30 U/L (14-36); Blood Urea Nitrogen 10 mg/dl (7-17); Creatinine Clearance Estimated 165 mL/min (50-200); Estimated Glomerular Filt Rate 198 ml/min (>60); GFR (African American) 239 ML/MIN (>60)
[2024-09-16 04:24] LABS: Albumin/Globulin Ratio 1.3 (1.1-1.8); Alkaline Phosphatase 98 U/L (38-126); Anion Gap 16.4 mEq/L (5-15); Bilirubin,Total 0.2 mg/dl (0.2-1.3); Calcium 8.9 mg/dl (8.4-10.2); Carbon Dioxide 16 mmol/L (22.0-30.0); Globulin 3.2 g/dL (1.3-3.2); Glucose 127 mg/dl (74-100); Lipase 128 U/L (23-300); Total Protein,Serum 7.2 g/dl (6.3-8.2)
[2024-09-16 04:25] LABS: Lactic Acid 1.9 mmol/L (0.7-2.1)
[2024-09-16 04:33] LABS: Microscopic, Urine URINE MICROSCOPIC (MICROSCOPIC)
[2024-09-16 04:34] LABS: Appearance,Urine CLEAR (Clear); Bilirubin,Urine Negative (Negative); Blood, Urine Negative (Negative); Color,Urine YELLOW (Yellow); Glucose,Urine (UA) TRACE (Negative); Ketones,Urine 1+ (Negative); Leukocyte Esterase,Urine Negative (Negative); Nitrate,Urine Negative (Negative); Protein,Urine 1+ (Negative); Specific Gravity, Urine >= 1.030 (1.005-1.030); Urobilinogen,Urine 0.2 EU/dl (0.2)
[2024-09-16 04:43] LABS: WBC,Urine Occasional #/hpf (0-3)
[2024-09-16 04:44] LABS: Bacteria,Urine Trace /lpf
[2024-09-16 04:55] VITALS: BP 138/83; PULSE 103; RESP 15; TEMP 36.8; O2SAT 97
[2024-09-16 05:06] VITALS: BP 137/93; PULSE 103; RESP 12; TEMP 36.6; O2SAT 96
== END 2024-09-16 05:14 | disposition home or self-care (01) ==
PROVIDERS: Emergency Provider Emergency Medicine; PCP Nurse Practitioner Family
DX: O21.9 Vomiting of pregnancy, unspecified (principal); O10.919 Unspecified pre-existing hypertension complicating pregnancy, unspecified trimester; O24.419 Gestational diabetes mellitus in pregnancy, unspecified control; Z3A.30 30 weeks gestation of pregnancy
CPT/HCPCS: 80053; 81001; 83605; 83690; 85025; 87636; 96360; 99283; J7120

== ENCOUNTER 2024-09-16 04:56 | Outpatient (CLI) | payer OTHER, SELFPAY ==
[2024-09-16 05:13] VITALS: BMI 40.9
[2024-09-16 05:20] VITALS: BMI 41.2
[2024-09-16 05:25] VITALS: BP 125/81; PULSE 111; RESP 17; TEMP 36.6; O2SAT 96
[2024-09-16 05:25] LABS: Uric Acid 3.9 mg/dl (2.5-6.2)
[2024-09-16 05:26] LABS: Creatinine,Urine Random 169 mg/dL (Not Estab.)
[2024-09-16] MEDS: ONDANSETRON 4MG/2ML VIAL 4 MG IV (05:32)
== END 2024-09-16 07:55 | disposition home or self-care (01) ==
LOC: OBOUT 04:59 → OB 05:11
PROVIDERS: PCP Nurse Practitioner Family; Visit Provider Obstetrics & Gynecology
DX: O10.013 Pre-existing essential hypertension complicating pregnancy, third trimester (principal); Z3A.30 30 weeks gestation of pregnancy
CPT/HCPCS: 82570; 84156; 84550; G0463; J2405

== ENCOUNTER 2024-10-02 14:52 | Outpatient (CLI) | payer OTHER, SELFPAY ==
--- NOTE | 2024-10-02 14:52 | US_ITS ---
PROCEDURE: US OB BIOPHYSICAL PROFILE CLINICAL INDICATION: Bpp/Growth and MARVIN-Gest Diabetic/GHTN COMPARISON: US US OB /MATERNAL DETAIL from 07/13/2024 US US OB >= 14 WEEKS FETUS from 07/28/2024 US US OB BIOPHYSICAL PROFILE from 09/06/2024 FINDINGS: Transabdominal sonographic images of the uterus were obtained. From her established due date she is 32weeks 3days. The following parameters are obtained: Viable Fetus in the cephalic presentation with an anterior placenta grade 2. Average ultrasound age is 33weeks 4days Estimated weight 2,156g, 4 lb 12 oz Cervix measures 3.84 cm Measurements: heart Rate = 143bpm BPD = 33weeks 4days, 72 percentile HC = 34weeks 2days, 59 percentile AC = 33weeks 1day, 70 percentile FL = 33weeks 2days, 59 percentile HC/AC is 1.05 FL/BPD is 0.77 FL/AC is 0.22 67 percentile Amniotic fluid index: 12.62cm, MVP 4.30 cm Qualitative AFV:2 Breathing movements: 2 Gross Body Movements: 2 Tone: 2 Biophysical profile score: 8 No obvious anomalies evident.Kidneys, profile, stomach, bladder, four-chamber heart, three-vessel cord appear normal. IMPRESSION: 1. Viable fetus in the cephalic presentation with an anterior placenta grade 2. 2. The fluid is within normal limits with an amniotic fluid index 12.62 cm, MVP 4.30 cm. 3. Biophysical profile is 8/8 with good breathing movement and movement seen. 4. There has been good interval growth with the fetus currently 67th percentile. 5. Limited anatomical scan appears normal. Dictated by: Joe Reinoso MD 10/02/2024 16:28 Joe Reinoso MD in [facility] 10/02/2024 16:28
== END 2024-10-02 23:59 | disposition home or self-care (01) ==
LOC: RAD 14:52
PROVIDERS: PCP Nurse Practitioner Family; Visit Provider Obstetrics & Gynecology
DX: O10.913 Unspecified pre-existing hypertension complicating pregnancy, third trimester (principal); O24.419 Gestational diabetes mellitus in pregnancy, unspecified control; O99.213 Obesity complicating pregnancy, third trimester; Z3A.32 32 weeks gestation of pregnancy
CPT/HCPCS: 76816; 76819

== ENCOUNTER 2024-10-09 12:54 | Outpatient (CLI) | payer OTHER, SELFPAY ==
--- NOTE | 2024-10-09 12:55 | US_ITS ---
PROCEDURE: US OB BIOPHYSICAL PROFILE CLINICAL INDICATION: Gest Diabetic,GHTN COMPARISON: US US OB /MATERNAL DETAIL from 07/13/2024 US US OB >= 14 WEEKS FETUS from 07/28/2024 US US OB BIOPHYSICAL PROFILE from 09/06/2024 US US OB BIOPHYSICAL PROFILE from 10/02/2024 FINDINGS: Transabdominal sonographic images of the uterus were obtained. From her established due date she is 33weeks 3days. The following parameters are obtained: Viable Fetus in the cephalic presentation with an anterior placenta grade 1-2. The cervix measures 3.11 cm. Measurements: heart Rate = 138bpm Amniotic fluid index: 15.59cm, MVP 6.46 cm Qualitative AFV:2 Breathing movements: 2 Gross Body Movements: 2 Tone: 2 Biophysical profile score: 8 No obvious anomalies evident.Kidneys, profile, bladder, stomach, three-vessel cord appear normal. IMPRESSION: 1. Viable fetus in the cephalic presentation with an anterior placenta grade 1-2. 2. The fluid is within normal limits with an amniotic fluid index 15.59 cm, MVP 6.46 cm. 3. Biophysical profile is 8/8 with good breathing movement and movement seen. 4. Limited anatomical scan appears normal. Dictated by: Joe Reinoso MD 10/09/2024 14:08 Joe Reinoso MD in [facility] 10/09/2024 14:08
== END 2024-10-09 23:59 | disposition home or self-care (01) ==
LOC: RAD 12:55
PROVIDERS: PCP Nurse Practitioner Family; Visit Provider Obstetrics & Gynecology
DX: O24.419 Gestational diabetes mellitus in pregnancy, unspecified control (principal); O10.913 Unspecified pre-existing hypertension complicating pregnancy, third trimester; Z3A.33 33 weeks gestation of pregnancy
CPT/HCPCS: 76819

== ENCOUNTER 2024-10-16 13:00 | Outpatient (CLI) | payer OTHER, SELFPAY ==
--- NOTE | 2024-10-16 13:00 | US_ITS ---
PROCEDURE: US OB BIOPHYSICAL PROFILE CLINICAL INDICATION: Gest Diabetic/GHTN COMPARISON: US US OB /MATERNAL DETAIL from 07/13/2024 US US OB >= 14 WEEKS FETUS from 07/28/2024 US US OB BIOPHYSICAL PROFILE from 09/06/2024 US OB BIOPHYSICAL PROFILE from 10/02/2024 US OB BIOPHYSICAL PROFILE from 10/09/2024 FINDINGS: Transabdominal sonographic images of the uterus were obtained. From her established due date she is 34weeks 3days. The following parameters are obtained: Viable Fetus in the cephalic presentation with an anterior placenta grade 1- 2. Cervix measures 2.83 cm. Measurements: heart Rate = 127bpm Amniotic fluid index: 13.02cm, MVP 4.50 cm. Qualitative AFV:2 Breathing movements: 2 Gross Body Movements: 2 Tone: 2 Biophysical profile score: 8 No obvious anomalies evident.Kidneys, bladder, stomach, four-chamber heart, three-vessel cord appear normal. IMPRESSION: 1. Viable fetus in the cephalic presentation with an anterior placenta grade 1-2. 2. The fluid is within normal limits with an amniotic fluid index 13.02 cm, MVP 4.50 cm. 3. Biophysical profile is 8/8 with good breathing movement and movement seen. 4. Limited anatomical scan appears normal. Dictated by: Joe Reinoso MD 10/16/2024 15:20 Joe Reinoso MD in [facility] 10/16/2024 15:20
== END 2024-10-16 23:59 | disposition home or self-care (01) ==
LOC: RAD 13:00
PROVIDERS: PCP Nurse Practitioner Family; Visit Provider Obstetrics & Gynecology
DX: O24.419 Gestational diabetes mellitus in pregnancy, unspecified control (principal); O10.913 Unspecified pre-existing hypertension complicating pregnancy, third trimester; Z3A.34 34 weeks gestation of pregnancy
CPT/HCPCS: 76819

== ENCOUNTER 2024-10-24 15:04 | Outpatient (CLI) | payer OTHER, SELFPAY ==
--- NOTE | 2024-10-24 15:04 | US_ITS ---
PROCEDURE: US OB BIOPHYSICAL PROFILE CLINICAL INDICATION: Gest Diabetic/Chronic Hypertension-BPP with MARVIN COMPARISON: US US OB /MATERNAL DETAIL from 07/13/2024 US US OB >= 14 WEEKS FETUS from 07/28/2024 US OB BIOPHYSICAL PROFILE from 09/06/2024 US OB BIOPHYSICAL PROFILE from 10/02/2024 US OB BIOPHYSICAL PROFILE from 10/09/2024 US OB BIOPHYSICAL PROFILE from 10/16/2024 FINDINGS: Transabdominal sonographic images of the uterus were obtained. From her established due date she is 35weeks 4days. The following parameters are obtained: Viable Fetus in the cephalic presentation with an anterior placenta grade 2. The cervix measures 3.03 cm in length. Measurements: heart Rate = 150bpm Amniotic fluid index: 8.62cm, MVP 5.08 cm. Qualitative AFV:2 Breathing movements: 2 Gross Body Movements: 2 Tone: 2 Biophysical profile score: 8 No obvious anomalies evident.Kidneys, profile, stomach, bladder, four-chamber heart, three-vessel cord appear normal. There continues to be mild bilateral renal pelvis dilation. IMPRESSION: 1. Viable fetus in the cephalic presentation with anterior placenta grade 2. 2. The fluid is within normal limits with an amniotic fluid index 8.62 cm, MVP 5.08 cm. 3. Biophysical profile is 8/8 with good breathing movement and movement seen. 4. There continues to be mild bilateral renal pelvis dilation measuring up to 5.6 mm. 5. Limited anatomical scan appears normal. Dictated by: Joe Reinoso MD 10/24/2024 16:25 Joe Reinoso MD in [facility] 10/24/2024 16:25
== END 2024-10-24 23:59 | disposition home or self-care (01) ==
LOC: RAD 15:04
PROVIDERS: PCP Nurse Practitioner Family; Visit Provider Obstetrics & Gynecology
DX: O10.913 Unspecified pre-existing hypertension complicating pregnancy, third trimester (principal); O24.419 Gestational diabetes mellitus in pregnancy, unspecified control; Z3A.35 35 weeks gestation of pregnancy
CPT/HCPCS: 76819

== ENCOUNTER 2024-10-26 13:40 | Outpatient (CLI) | payer OTHER, SELFPAY | END 2024-10-26 23:59 | disposition home or self-care (01) | LOC: LAB.DROPOF 10-27 10:35 | PROVIDERS: PCP Obstetrics & Gynecology; Visit Provider Obstetrics & Gynecology | DX: Z34.83 Encounter for supervision of other normal pregnancy, third trimester (principal); Z3A.35 35 weeks gestation of pregnancy | CPT/HCPCS: 86403 ==

== ENCOUNTER 2024-10-30 12:53 | Outpatient (CLI) | payer OTHER, SELFPAY ==
--- NOTE | 2024-10-30 12:55 | US_ITS ---
PROCEDURE: US OB BIOPHYSICAL PROFILE CLINICAL INDICATION: Bpp/Growth with MARVIN Gestational hypertension COMPARISON: US US OB /MATERNAL DETAIL from 07/13/2024 US US OB >= 14 WEEKS FETUS from 07/28/2024 US OB BIOPHYSICAL PROFILE from 09/06/2024 US OB BIOPHYSICAL PROFILE from 10/02/2024 US OB BIOPHYSICAL PROFILE from 10/09/2024 US OB BIOPHYSICAL PROFILE from 10/16/2024 US OB BIOPHYSICAL PROFILE from 10/24/2024 FINDINGS: Transabdominal sonographic images of the uterus were obtained. From her established due date she is 36weeks 3days. The following parameters are obtained: Viable Fetus in the cephalic presentation with an anterior placenta grade 2. Average ultrasound age is 37weeks 5days Estimated weight 3,265g, 7 lb 3 oz The cervix measures 4.09 cm. Measurements: heart Rate = 132bpm BPD = 36weeks 5days, 69 percentile HC = 37weeks 5days, 50 percentile AC = 37weeks 4days, 87 percentile FL = 38weeks 3days, 88 percentile HC/AC is 0.98 FL/BPD is 0.83 FL/AC is 0.22 84 percentile Amniotic fluid index: 15.49cm, MVP 4.70 cm. Qualitative AFV:2 Breathing movements: 2 Gross Body Movements: 2 Tone: 2 Biophysical profile score: 8 No obvious anomalies evident.Kidneys, stomach, bladder, four-chamber heart, three-vessel cord appear normal. IMPRESSION: 1. Viable fetus in the cephalic presentation with an anterior placenta grade 2. 2. The fluid is within normal limits with an amniotic fluid index 15.49 cm, MVP 4.70 cm. 3. Biophysical profile is 8/8 with good breathing movement and movement seen. 4. There has been good interval growth with the fetus currently 84th percentile. 5. Limited anatomical scan appears normal. Dictated by: Joe Reinoso MD 10/30/2024 17:18 Joe Reinoso MD in [facility] 10/30/2024 17:18
== END 2024-10-30 23:59 | disposition home or self-care (01) ==
LOC: RAD 12:53
PROVIDERS: PCP Nurse Practitioner Family; Visit Provider Obstetrics & Gynecology
DX: O10.913 Unspecified pre-existing hypertension complicating pregnancy, third trimester (principal); O24.419 Gestational diabetes mellitus in pregnancy, unspecified control; Z3A.36 36 weeks gestation of pregnancy
CPT/HCPCS: 76816; 76819

== ENCOUNTER 2024-11-06 10:49 | Outpatient (CLI) | payer OTHER, SELFPAY ==
[2024-11-06] VITALS (7 sets, daily range): BP systolic 130–139; BP diastolic 73–93; PULSE 82; RESP 18; TEMP 37; BMI 42.7
[2024-11-06 12:13] LABS: Basophils % 0.3 % (0.1-2.0); Eosinophils % 0.6 % (0.1-12.0); Hemoglobin 10.2 g/dL (12.2-16.2); Lymphocytes # 1.5 K/mm3 (0.7-4.5); Lymphocytes % 21.6 % (10-50); Mean Corpuscular HGB Conc 31.9 g/dL (31.8-35.4); Mean Corpuscular Hemoglobin 24.9 pg (27.0-31.2); Mean Corpuscular Volume 78.2 fl (81-99); Mean Platelet Volume 13.9 fl (7.4-10.4); Monocytes % 14.1 % (1.7-9.3); Neutrophils # 4.4 K/mm3 (1.8-7.8); Neutrophils % 62.5 % (37.0-80.0); Platelet Count 318 K/mm3 (142-424); Red Blood Count 4.09 M/mm3 (4.20-5.40); Red Cell Distribution Width 15.5 % (11.5-17.5)
[2024-11-06 12:29] LABS: Alanine Aminotransferase 15 U/L (12-78); Albumin Level 3.3 g/dl (3.5-5.0); Albumin/Globulin Ratio 1.1 (1.1-1.8); Alkaline Phosphatase 136 U/L (38-126); Anion Gap 12.7 mEq/L (5-15); Aspartate Amino Transferase 24 U/L (14-36); Bilirubin,Total 0.3 mg/dl (0.2-1.3); Blood Urea Nitrogen 7 mg/dl (7-17); Calcium 9.1 mg/dl (8.4-10.2); Carbon Dioxide 20 mmol/L (22.0-30.0); Chloride 105 mmol/L (98-107); Creatinine Clearance Estimated 173 mL/min (50-200); Estimated Glomerular Filt Rate 198 ml/min (>60); GFR (African American) 239 ML/MIN (>60); Globulin 3.1 g/dL (1.3-3.2); Glucose 76 mg/dl (74-100); Potassium 3.7 mmoL/L (3.5-5.1); Sodium 134 mmol/L (136-145); Total Protein,Serum 6.4 g/dl (6.3-8.2); Uric Acid 5.3 mg/dl (2.5-6.2)
[2024-11-06 12:35] LABS: Microscopic, Urine URINE MICROSCOPIC (MICROSCOPIC)
[2024-11-06 12:37] LABS: Appearance,Urine CLEAR (Clear); Bilirubin,Urine Negative (Negative); Blood, Urine Negative (Negative); Color,Urine YELLOW (Yellow); Glucose,Urine (UA) Negative (Negative); Ketones,Urine Negative (Negative); Leukocyte Esterase,Urine 1+ (Negative); Nitrate,Urine Negative (Negative); PH,Urine 6.5 (5.0-8.5); Protein,Urine Negative (Negative); Specific Gravity, Urine 1.015 (1.005-1.030); Urobilinogen,Urine 0.2 EU/dl (0.2)
[2024-11-06 12:47] LABS: Activated Partial Thrombo Time 26.5 seconds (22.8-30.6); Fibrinogen 492 mg/dL (229.9-363.5); INR 0.84 (0.9-1.1); Prothrombin Time 9.6 seconds (10.1-12.5)
[2024-11-06 12:52] LABS: Bacteria,Urine Trace /lpf
[2024-11-06 13:03] LABS: Creatinine,Urine Random 101 mg/dL (Not Estab.)
== END 2024-11-06 13:57 | disposition home or self-care (01) ==
LOC: OBOUT 10:51 → OB 10:52
PROVIDERS: PCP Nurse Practitioner Family; Visit Provider Obstetrics & Gynecology
DX: O10.913 Unspecified pre-existing hypertension complicating pregnancy, third trimester (principal); Z3A.37 37 weeks gestation of pregnancy
CPT/HCPCS: 80053; 81001; 82570; 84156; 84550; 85025; 85384; 85610; 85730; 87086; G0463

== ENCOUNTER 2024-11-09 12:22 | Inpatient (IN) | payer OTHER, SELFPAY ==
[2024-11-09] VITALS (12 sets, daily range): BP systolic 132–164; BP diastolic 82–108; PULSE 75–86; RESP 18; TEMP 36.8; O2SAT 96; BMI 43.7
[2024-11-09 14:08] LABS: Microscopic, Urine URINE MICROSCOPIC (MICROSCOPIC)
--- NOTE | 2024-11-09 14:13 | HMH.PHAINT1 ---
Pharmacy Intervention Comments: MEDICATION RECONCILIATION COMPLETED ON PATIENT USING EXTERNAL FILL HISTORY FROM PHARMACY. -KIMBERLEE LAGUERRE, WENDIED
[2024-11-09] MEDS: miSOPROStol 100MCG TABLET 50 MCG PO ×2 (14:19→20:43)
[2024-11-09 14:28] LABS: Alanine Aminotransferase 23 U/L (12-78); Albumin Level 3.4 g/dl (3.5-5.0); Alkaline Phosphatase 125 U/L (38-126); Anion Gap 16.1 mEq/L (5-15); Aspartate Amino Transferase 27 U/L (14-36); Bilirubin,Total 0.2 mg/dl (0.2-1.3); Blood Urea Nitrogen 9 mg/dl (7-17); Calcium 9.4 mg/dl (8.4-10.2); Carbon Dioxide 18 mmol/L (22.0-30.0); Chloride 106 mmol/L (98-107); Creatinine Clearance Estimated 138 mL/min (50-200); Estimated Glomerular Filt Rate 153 ml/min (>60); GFR (African American) 185 ML/MIN (>60); Globulin 3.4 g/dL (1.3-3.2); Glucose 100 mg/dl (74-100); Potassium 4.1 mmoL/L (3.5-5.1); Sodium 136 mmol/L (136-145); Total Protein,Serum 6.8 g/dl (6.3-8.2); Uric Acid 4.8 mg/dl (2.5-6.2)
[2024-11-09 14:44] LABS: Bilirubin,Urine Negative (Negative); Blood, Urine Negative (Negative); Color,Urine YELLOW (Yellow); Glucose,Urine (UA) Negative (Negative); Ketones,Urine Negative (Negative); Leukocyte Esterase,Urine Negative (Negative); Nitrate,Urine Negative (Negative); Protein,Urine TRACE (Negative); Specific Gravity, Urine >= 1.030 (1.005-1.030); Urobilinogen,Urine 0.2 EU/dl (0.2)
[2024-11-09 14:47] LABS: Appearance,Urine Slightly Cloudy (Clear)
[2024-11-09 14:58] LABS: Fibrinogen 492 mg/dL (229.9-363.5); INR 0.81 (0.9-1.1); Prothrombin Time 9.3 seconds (10.1-12.5)
[2024-11-09 15:08] LABS: Creatinine,Urine Random 151 mg/dL (Not Estab.)
[2024-11-09 15:23] LABS: RBC,Urine Occasional #/hpf (0-3); Squamous Epithelial Cell,Urine 50-100 #/hpf (0-5); WBC,Urine 20-50 #/hpf (0-3)
[2024-11-09 15:24] LABS: Bacteria,Urine 3+ /lpf; Calcium Oxalate Crystals,Urine 1+ /lpf
[2024-11-09 15:33] LABS: Red Blood Count 4.01 M/mm3 (4.20-5.40)
[2024-11-09 15:34] LABS: Hematocrit 31.3 % (37.0-47.0); Mean Corpuscular HGB Conc 31.9 g/dL (31.8-35.4); Mean Corpuscular Hemoglobin 24.9 pg (27.0-31.2); Mean Corpuscular Volume 78.1 fl (81-99); Platelet Count 306 K/mm3 (142-424); Red Cell Distribution Width 15.6 % (11.5-17.5); Red Cell Distribution Width-SD 44.1 fL
[2024-11-09 15:36] LABS: Basophils % 0.3 % (0.1-2.0); Eosinophils % 0.4 % (0.1-12.0); Lymphocytes # 1.4 K/mm3 (0.7-4.5); Mean Platelet Volume 13.7 fl (7.4-10.4); Monocytes # 1.1 K/mm3 (0.1-1.0); Monocytes % 13.7 % (1.7-9.3); Neutrophils # 5.4 K/mm3 (1.8-7.8); Neutrophils % 67.5 % (37.0-80.0); Nucleated Red Blood Cells % 0 %
[2024-11-09 15:37] LABS: Nucleated Red Blood Cells # 0 10^3/uL
[2024-11-09 16:37] LABS: Activated Partial Thrombo Time 24.6 seconds (22.8-30.6)
[2024-11-09] MEDS: LABETALOL 5MG/ML 20ML MDV 20 MG IV (18:39)
[2024-11-09] MEDS: LABETALOL 5MG/ML 20ML MDV 40 MG IV (19:06)
[2024-11-09] MEDS: LABETALOL 100MG TABLET 200 MG PO (20:11)
[2024-11-09 22:03] LABS: POC Glucose,Bedside 128 (70-110)
[2024-11-10] MEDS: miSOPROStol 100MCG TABLET 50 MCG PO (03:06)
[2024-11-10] MEDS: ACETAMINOPHEN 500MG TAB 1000 MG PO ×2 (03:07→22:02)
[2024-11-10 03:31] VITALS: BP 156/105
[2024-11-10] MEDS: LABETALOL 5MG/ML 20ML MDV 20 MG IV (03:31)
[2024-11-10 04:01] VITALS: BP 133/75
[2024-11-10 07:51] VITALS: BP 139/90; PULSE 88; RESP 18; TEMP 37.2; O2SAT 98
[2024-11-10 08:11] LABS: POC Glucose,Bedside 82 (70-110)
[2024-11-10] MEDS: LABETALOL 100MG TABLET 200 MG PO ×2 (09:00→21:54)
[2024-11-10] MEDS: OXYTOCIN/RINGERS LACTATE 30 UNITS/500 ML BAG IV (09:23)
[2024-11-10] MEDS: DEXTROSE 5%-LACTATED RINGERS 1,000 ML 125 ML IV (09:23)
[2024-11-10] MEDS: LACTATED RINGERS 1000ML 1,000 ML 500 ML IV (09:23)
[2024-11-10] MEDS: BUTORPHANOL TARTRATE 1 MG/ML VIAL IV (12:16)
--- NOTE | 2024-11-10 12:47 | P.HP_ITS ---
OB - H&P: HPI Antepartum History of Present Illness Chief complaint: Scheduled induction of labor for CHTN and GDMA2 History of present illness: Ms Vy Oliveira is a 24 yo who presents to [facility] L&D for scheduled induction of labor secondary to CHTN on Labetalol 200 mg PO BID. also complicated by maternal obesity and GDMA2. She is taking Glyburide 2.5 mg PO daily. She has had good care. Baby is active. History of Present Criteria for establishing EDC:: LMP confirmed by 1st trimester US care: good care Ultrasounds: normal mid trimester US Obstetrical complications: gestational diabetes and other (chronic hypertension, maternal obesity) Medical complications: none Labs Blood type: AB (+) positive Rubella: immune RPR/VDRL: nonreactive GBS status: negative HBsAG: negative PFSH PFS Disclaimer: The information contained in this section may have been updated after the patient was seen, as this information can be updated by other users. Medical History Asthma Allergic rhinitis Gestational diabetes mellitus (GDM) affecting , antepartum on Glyburide Chronic hypertension affecting Maternal obesity syndrome, antepartum Attention Deficit Hyperactivity Disorder (ADHD) Generalized anxiety disorder Surgical History History of laparoscopic cholecystectomy History of surgery ovarian cysts Hx of tonsillectomy Family History Other Diabetes Heart attack Social History (Updated 11/09/24 @ 14:33 by Kip Florez RN) Smoking Status: Former smoker tobacco type: e-cigarettes second hand exposure: No alcohol intake: current alcohol intake frequency: a few times a month counseling given: No substance use type: denies use current occupational status: employed Travel in the last 8 weeks: None adopted: No caregiver/support person: No foster care: No household members: none housing: house lives independently: Yes marital status: single number of children: 0 number of grandchildren: 0 education level: high school current occupation: works at [employer] pets and animals: Yes (maltese maria) pets and animals: dog(s) Hx Recent Travel: No sexually active: Yes caffeine: Yes physical activity: none leonel/muslim: Moravian special leonel needs: No working smoke detector in home: Yes fire extinguisher in home: No carbon monox detector in home: No firearms in home: Yes do you feel safe at home: Yes victim of physical abuse: No victim of emotional abuse: No victim of sexual abuse: No would you like helpful sources: No Have you lived/traveled outside US in past 30 days?: No Contact w/someone who lives/traveled outside US past 30 days?: No Exposure to someone with infectious disease in past 14 days?: No Do you have a fever (greater than 100.4 F or 38 C)?: No Have you tested positive for COVID-19: No Exposed to someone with COVID-19 in past 14 days?: No Do you have a sore throat?: No Do you have a cough?: No Do you have any weakness?: No Are you experiencing any nausea/vomitting?: No Do you have any diarrhea?: No Are you experiencing any unusual bleeding?: No Do you have any muscle aches/pain?: No Do you have any abdominal pain?: No Are you experiencing loss of taste or smell?: No Other Medical History Have you received the Flu Vaccine for this season: No Have you received the Pneumonia Vaccine: No Review of Systems Review of Systems Review of systems:: pertinent systems reviewed and negative unless documented below Meds Home Medications and Allergies Home Medications ?Medication ?Instructions ?Recorded ?Confirmed ?Type vits no.126-ferrous fum 1 tab PO DAILY 04/17/24 11/09/24 History 28 mg iron-folic acid 800 mcg tablet (Classic ) cetirizine 10 mg tablet 10 mg PO DAILY 05/31/24 11/09/24 History blood sugar diagnostic (Accu-Chek #100 09/06/24 11/09/24 Rx SmartView Test Strips) blood-glucose meter (Accu-Chek #1 09/06/24 11/09/24 Rx Guide Glucose Meter) lancing device with lancets kit #1 09/06/24 11/09/24 Rx (Accu-Chek Softclix Lancing Device+Lancets kit) glyburide 2.5 mg tablet 2.5 mg PO DAILY #30 tabs 09/13/24 11/09/24 Rx pantoprazole 40 mg tablet,delayed 40 mg PO DAILY #30 tabs 09/27/24 11/09/24 Rx release (Protonix) fluticasone furoate 27.5 1 spray intranasal DAILY #5.9 mL 09/28/24 11/09/24 Rx mcg/actuation nasal spray,suspension albuterol 90 mcg-budesonide 80 2 inh inhalation Q6HP PRN 11/09/24 11/09/24 History mcg/actuation HFA aerosol inhaler shortness of breath or wheezing (Airsupra) labetalol 200 mg tablet 200 mg PO BID 11/09/24 11/09/24 History ondansetron 4 mg disintegrating 4 mg PO Q6HP PRN nausea and 11/09/24 11/09/24 History tablet vomiting New Prescriptions to Start Prescriptions: Allergies Allergy/AdvReac Type Severity Reaction Status Date / Time No Known Allergies Allergy Verified 11/06/24 10:11 OB - H&P: Exam Physical Exam Vital signs: Temp Pulse Resp BP Pulse Ox O2 Del Method 98.9 F 88 18 139/90 98 Room Air 11/10/24 07:51 11/10/24 07:51 11/10/24 07:51 11/10/24 07:51 11/10/24 07:51 11/10/24 07:51 Constitutional no acute distress, obese and cooperative Routine HEENT Exam Head: Present normocephalic and atraumatic Eye: Absent conjunctivae pink ENT: Present mucous membranes moist Routine Neck Exam Present full ROM Routine Respiratory Exam Present CTA bilaterally and normal respiratory effort Routine Cardiovascular Exam Present RRR Routine Abdominal Exam Present soft (Gravid); Absent tenderness Routine Rectal Exam Patient deferred: visual exam Routine Exam External: Present normal urethra appearance; Absent erythema, swelling, tenderness, lesions or lacerations Routine Extremities Exam Present edema (+1 bilateral lower extremity edema) and full ROM; Absent calf tenderness Routine Neurological Exam Present alert, moving all extremities and normal speech Routine Psychiatric Exam Present normal affect and cooperative Detailed Labor and Delivery Exam Dilation (cm): 1 Effacement (%): 70 Cervix position: posterior station: -2 Consistency: soft Membranes: artificially ruptured Amniotic fluid: clear Baseline heart rate: 130 monitor accelerations: Present monitor decelerations: None loader helper sorting yard variability: Moderate (11-25) Contraction frequency (min): 3 OB - Results Labs Labs: Short CBC 11/09/24 Range/Units 13:50 WBC 8.0 (4.8-10.8) K/mm3 Hgb 10.0 L (12.2-16.2) g/dL Hct 31.3 L (37.0-47.0) % Plt Count 306 (142-424) K/mm3 BMP 11/09/24 13:50 Sodium 136 Potassium 4.1 Chloride 106 Carbon Dioxide 18 L BUN 9 Creatinine 0.50 L Glucose 100 Calcium 9.4 Liver Function 11/09/24 Range/Units 13:50 Total Bilirubin 0.2 (0.2-1.3) mg/dl AST 27 (14-36) U/L ALT 23 (12-78) U/L Alkaline Phosphatase 125 (38-126) U/L Albumin 3.4 L (3.5-5.0) g/dl Urine 11/09/24 Range/Units 13:03 Urine Color Yellow (Yellow) Urine Appearance Slightly cloudy (Clear) Urine pH 6.0 (5.0-8.5) Ur Specific [place] >= 1.030 (1.005-1.030) Urine Protein Trace (Negative) Urine Glucose (UA) Negative (Negative) OB - A/P Antepartum (1) Chronic hypertension affecting : Status: Acute (2) Gestational diabetes mellitus (GDM) affecting , antepartum: Problem details: on Glyburide Status: Acute (3) Maternal obesity syndrome, antepartum: Status: Acute (4) Asthma: Status: Acute (5) Attention Deficit Hyperactivity Disorder (ADHD): Status: Acute (6) Generalized anxiety disorder: Status: Acute Additional Plan Plan: induction Additional Information:: Admit to [facility] L&D for scheduled induction of labor. Induction with Cytotec follo wed by amniotomy and Pitocin GBS negative Close monitoring
--- NOTE | 2024-11-10 12:56 | P.PNANES_ITS ---
[facility] Disclaimer: The information contained in this section may have been updated after the patient was seen, as this information can be updated by other users. Medical History Asthma Allergic rhinitis Gestational diabetes mellitus (GDM) affecting , antepartum Chronic hypertension affecting Maternal obesity syndrome, antepartum Attention Deficit Hyperactivity Disorder (ADHD) Generalized anxiety disorder Surgical History History of laparoscopic cholecystectomy History of surgery Hx of tonsillectomy Family History Other Diabetes Heart attack Social History Smoking Status: Former smoker tobacco type: e-cigarettes second hand exposure: No alcohol intake: current alcohol intake frequency: a few times a month counseling given: No substance use type: denies use current occupational status: employed Travel in the last 8 weeks: None adopted: No caregiver/support person: No foster care: No household members: none housing: house lives independently: Yes marital status: single number of children: 0 number of grandchildren: 0 education level: high school current occupation: works at [employer] pets and animals: Yes (welsh maria) pets and animals: dog(s) Hx Recent Travel: No sexually active: Yes caffeine: Yes physical activity: none leonel/jehovah's witness: Uatsdin special leonel needs: No working smoke detector in home: Yes fire extinguisher in home: No carbon monox detector in home: No firearms in home: Yes do you feel safe at home: Yes victim of physical abuse: No victim of emotional abuse: No victim of sexual abuse: No would you like helpful sources: No Have you lived/traveled outside US in past 30 days?: No Contact w/someone who lives/traveled outside US past 30 days?: No Exposure to someone with infectious disease in past 14 days?: No Do you have a fever (greater than 100.4 F or 38 C)?: No Have you tested positive for COVID-19: No Exposed to someone with COVID-19 in past 14 days?: No Do you have a sore throat?: No Do you have a cough?: No Do you have any weakness?: No Are you experiencing any nausea/vomitting?: No Do you have any diarrhea?: No Are you experiencing any unusual bleeding?: No Do you have any muscle aches/pain?: No Do you have any abdominal pain?: No Are you experiencing loss of taste or smell?: No [facility] Anesthesia Checklist Patient Identification Patient Identification: Arm Band and Verbal (Name & ) Structural Data Admitted From: Home Planned Operative Procedure/s: term Consent for Planned Operative Procedure(s) Verified: Yes Verified Documents: History and Physical NPO Status Verified Time NPO: 00:00 Additional verifications Anesthesia Reactions: No Hx Blood Transfusions: No Blood Transfusion Reaction: No Airway Assessment Mallampati Score:: Class II Neurological Assessment Level of Consciousness: Awake, Alert and Appropriate Hx Seizures: No Anesthesia Plan Anesthesia Risk discussed: Yes Anesthesia Plan: Verified ASA Class: II Anesthesia Type: Epidural
[2024-11-10] MEDS: FAMOTIDINE 20MG/2ML VIAL 20 MG IV (14:24)
[2024-11-10] MEDS: ONDANSETRON 4MG/2ML VIAL 4 MG IV (14:59)
[2024-11-10 15:04] LABS: POC Glucose,Bedside 95 (70-110)
[2024-11-10 18:53] LABS: POC Glucose,Bedside 97 (70-110)
[2024-11-10] MEDS: OXYTOCIN/RINGERS LACTATE 30 UNITS/500 ML BAG 999 UNITS IV (21:24)
--- NOTE | 2024-11-10 21:45 | EXP.DN ---
Delivery Note Delivery Date:: 11/10/24 Delivery Time:: 21:21 Anesthesia Type: Epidural Was labor medically induced?: Yes Induction method: per misoprostol protocol Gestational age (weeks): 38 Infant delivered prior to 39 weeks?: Yes Justification for early elective delivery:: Benign Hypertension (Chronic Hypertension) and Gestational Diabetes Gender: Male at 1 minute: 5 at 5 minutes: 9 LAC or MLE?: LAC Delivery Procedure:: Mom complete with epidural. Pushed for approximately 58 minutes. Head delivered spontaneously over intact perineum in OA position. Nuchal cord easily reduced. Shoulder dystocia recognized. Jacque maneuver and suprapubic pressure performed without success. Posterior arm was noted to be bent at elbow and hand was by posterior shoulder. Posterior arm and shoulder was rotated and delivered. Anterior shoulder and remainder of baby's body delivered spontaneously. Shoulder dystocia resolved in 15 seconds. Baby placed on maternal abdomen, mouth and nares bulb suctioned, warmed/dried and stimulated. Delayed cord clamping was performed for 120 seconds. Cord was clamped and cut by father of baby. Cord blood was obtained. Placenta delivered spontaneously and intact. Placenta will be sent to pathology for review. Second degree perineal laceration was repaired with 3-0 Vicryl. Hemostasis was noted. Mom and baby were skin to skin and doing well after delivery. Live male baby (baby's name is Duane) APGARs % (1 min), 9 (5 min) EBL 200 mL Placental Delivery Description: Spontaneous
[2024-11-10 22:20] VITALS: BP 145/96; PULSE 93; RESP 21; TEMP 36.9
[2024-11-11] MEDS: WITCH HAZEL 40 PADS/BOX 1 EACH TP (01:05)
[2024-11-11] MEDS: BENZOCAINE-MENTHOL SPRAY 56GM CAN TP (01:05)
[2024-11-11] MEDS: IBUPROFEN 400 MG TABLET 800 MG PO ×2 (01:06→14:40)
[2024-11-11 02:49] VITALS: BP 145/81; PULSE 87; RESP 18; TEMP 36.6; O2SAT 98
[2024-11-11 06:03] VITALS: BP 146/77; PULSE 86; RESP 19; TEMP 36.9; O2SAT 97
[2024-11-11 07:31] LABS: Basophils % 0.2 % (0.1-2.0); Eosinophils % 0.2 % (0.1-12.0); Hematocrit 25.6 % (37.0-47.0); Hemoglobin 8.2 g/dL (12.2-16.2); Lymphocytes # 1.8 K/mm3 (0.7-4.5); Lymphocytes % 14.1 % (10-50); Mean Corpuscular Hemoglobin 24.8 pg (27.0-31.2); Mean Corpuscular Volume 77.6 fl (81-99); Monocytes # 1.7 K/mm3 (0.1-1.0); Monocytes % 13.4 % (1.7-9.3); Neutrophils # 8.9 K/mm3 (1.8-7.8); Neutrophils % 71.5 % (37.0-80.0); Nucleated Red Blood Cells # 0 10^3/uL; Nucleated Red Blood Cells % 0 %; Platelet Count 227 K/mm3 (142-424); Red Cell Distribution Width 15.9 % (11.5-17.5); Red Cell Distribution Width-SD 44.9 fL; White Blood Count 12.4 K/mm3 (4.8-10.8)
[2024-11-11 08:05] VITALS: BP 151/87; PULSE 76; RESP 16; TEMP 36.6; O2SAT 97
[2024-11-11] MEDS: ACETAMINOPHEN 500MG TAB 1000 MG PO ×2 (08:17→22:38)
[2024-11-11] MEDS: LABETALOL 100MG TABLET 200 MG PO ×2 (08:18→20:20)
[2024-11-11 08:37] LABS: Glucose,Fasting 88 mg/dl (74-100)
[2024-11-11] MEDS: SENNA 8.6MG TABLET 8.6 MG PO ×2 (08:52→20:20)
[2024-11-11 12:17] VITALS: BP 139/76; PULSE 82; RESP 16; TEMP 36.4; O2SAT 98
--- NOTE | 2024-11-11 14:17 | P.PN_ITS ---
Subjective *Date: 11/11/24 *Time: 14:17 Interval history: PPD # 1 s/p Feeling well. Pain controlled. Breast and formula feeding. Lochia is appropriate. Voiding without difficulty and passing flatus. Tolerating regular diet. Denies fever/chills, chest pain and shortness of breath. No headaches, vision changes, lightheadedness/dizziness. Admits to lower extremity swelling. No calf pain. Ambulating well ad malcolm. Medical Exam Vital signs and Labs for Last 24 Hours: Vital Signs Temp Pulse Resp BP Pulse Ox O2 Del Method 11/11/24 12:17 97.6 F 82 16 139/76 98 Room Air 11/11/24 08:05 97.8 F 76 16 151/87 H 97 Room Air 11/11/24 06:03 98.5 F 86 19 146/77 H 97 Room Air 11/11/24 02:49 97.9 F 87 18 145/81 H 98 Room Air 11/10/24 22:20 98.4 F 93 H 21 145/96 H Room Air Intake and Output 11/10/24 11/11/24 11/11/24 23:59 07:59 15:59 Output Total 450 / 450 Balance -450 / -450 Output: Output, Urine Amount 450 / 450 Laboratory Results - last 24 hr 11/10/24 14:53: POC Glucose 95 11/10/24 18:45: POC Glucose 97 11/11/24 06:50: WBC 12.4 H D, RBC 3.30 L, Hgb 8.2 L, Hct 25.6 L, MCV 77.6 L, MCH 24.8 L, MCHC 32.0, RDW 15.9, Plt Count 227 D, MPV TNP, Neut % (Auto) 71.5, Lymph % (Auto) 14.1, [place] % (Auto) 13.4 H, Eos % (Auto) 0.2, Baso % (Auto) 0.2, Neut # (Auto) 8.9 H, Lymph # (Auto) 1.8, [place] # (Auto) 1.7 H, Eos # (Auto) 0.0, Baso # (Auto) 0.0, Fasting Glucose 88 I & O for Labs for Last 24 Hours: Intake & Output 11/08/24 11/09/24 11/10/24 11/11/24 23:59 23:59 23:59 23:59 Output Total 450 / 450 Balance -450 / -450 Weight 239 lb Microbiology Reports for the Last 24 Hours: Microbiology 11/09/24 13:03 Urine,Clean Catch Urine Culture - Final Head: Present atraumatic and normocephalic Neck: Present full ROM Respiratory: Present CTA bilaterally and normal respiratory effort Cardiac: Present Reg Rate and Rhythm GI: Present soft; Absent distention or tenderness Comments:: Uterine fundus firm and below umbilicus Rectal (female): Present deferred (female): Present deferred Extremities: Present full ROM and edema (+2 bilateral lower extremity swelling); Absent calf tenderness Neuro: Present alert, awake and moves all extremities Assessment and Plan *Assessment and plan (1) Status post vaginal delivery: Status: Acute Category: Surgical (2) Chronic hypertension affecting : Status: Acute Category: Medical Code(s): O10.919 - Unspecified pre-existing hypertension complicating , unspecified trimester (3) Gestational diabetes mellitus (GDM) affecting , antepartum: Problem Comment: on Glyburide Status: Acute Category: Medical Code(s): O24.419 - Gestational diabetes mellitus in , unspecified control (4) Maternal obesity syndrome, antepartum: Status: Acute Category: Medical Code(s): O99.210 - Obesity complicating , unspecified trimester (5) Attention Deficit Hyperactivity Disorder (ADHD): Status: Acute Qualifiers: Attention deficit-hyperactivity disorder type: unspecified Qualified Code(s): F90.9 - Attention-deficit hyperactivity disorder, unspecified type Category: Medical Code(s): F90.9 - Attention-deficit hyperactivity disorder, unspecified type (6) Generalized anxiety disorder: Status: Acute Category: Medical Code(s): F41.1 - Generalized anxiety disorder (7) Acute blood loss anemia (ABLA): Status: Acute Category: Medical Code(s): D62 - Acute posthemorrhagic anemia Plan Continue routine care Encouraged increased ambulation AM Hgb 8.2. Venofer 200 mg IV x 1 dose BP has been normotensive but reaches mild range around time Labetalol is due. Continue to monitor. She is asymptomatic Continue Labetalol 200 mg q 12 hours Repeat PIH labs tomorrow AM, straight cath for urine if she is agreeable to look at urine protien/creatinine ratio Plan on d/c PPD # 3 if BP stable and she is doing well
[2024-11-11] MEDS: IRON SUCROSE COMPLEX 200 MG in 0.9 % SODIUM CHLORIDE 100 ML 220 MG IV (14:42)
[2024-11-11 15:47] LABS: RPR W/RFX Titers Nonreactive (Nonreactive)
[2024-11-11] MEDS: PRENATAL MULTIVITAMIN W/IRON 1 EACH PO (16:16)
[2024-11-11 16:40] VITALS: BP 135/85; PULSE 80; RESP 18; TEMP 36.6; O2SAT 98
[2024-11-11 20:16] VITALS: BP 147/88; PULSE 76; RESP 19; TEMP 36.7; O2SAT 97
[2024-11-12] VITALS (17 sets, daily range): BP systolic 123–168; BP diastolic 67–98; PULSE 72–90; RESP 14–20; TEMP 36.6–36.9; O2SAT 97–99
[2024-11-12] MEDS: IBUPROFEN 400 MG TABLET 800 MG PO ×2 (04:21→21:35)
[2024-11-12 08:05] LABS: Albumin Level 2.8 g/dl (3.5-5.0); Chloride 107 mmol/L (98-107); Sodium 137 mmol/L (136-145)
[2024-11-12 08:06] LABS: Potassium 3.8 mmoL/L (3.5-5.1)
[2024-11-12 08:08] LABS: Alanine Aminotransferase 15 U/L (12-78); Anion Gap 9.8 mEq/L (5-15); Aspartate Amino Transferase 28 U/L (14-36); Blood Urea Nitrogen 7 mg/dl (7-17); Carbon Dioxide 24 mmol/L (22.0-30.0); Creatinine Clearance Estimated 138 mL/min (50-200); Estimated Glomerular Filt Rate 153 ml/min (>60); GFR (African American) 185 ML/MIN (>60)
[2024-11-12 08:09] LABS: Alkaline Phosphatase 100 U/L (38-126); Bilirubin,Total 0.2 mg/dl (0.2-1.3); Globulin 2.9 g/dL (1.3-3.2); Total Protein,Serum 5.7 g/dl (6.3-8.2)
[2024-11-12 08:28] LABS: Basophils % 0.4 % (0.1-2.0); Eosinophils # 0.1 K/mm3 (0.0-0.4); Eosinophils % 0.8 % (0.1-12.0); Hematocrit 24.4 % (37.0-47.0); Hemoglobin 7.8 g/dL (12.2-16.2); Lymphocytes % 18.1 % (10-50); Mean Corpuscular Hemoglobin 24.9 pg (27.0-31.2); Monocytes # 1.2 K/mm3 (0.1-1.0); Monocytes % 10.6 % (1.7-9.3); Neutrophils # 7.6 K/mm3 (1.8-7.8); Neutrophils % 68.5 % (37.0-80.0); Nucleated Red Blood Cells # 0 10^3/uL; Nucleated Red Blood Cells % 0 %; Platelet Count 229 K/mm3 (142-424); Red Blood Count 3.13 M/mm3 (4.20-5.40); Red Cell Distribution Width-SD 45.1 fL; White Blood Count 11.2 K/mm3 (4.8-10.8)
[2024-11-12 08:42] LABS: Calcium 8.5 mg/dl (8.4-10.2); Glucose 76 mg/dl (74-100)
[2024-11-12] MEDS: ACETAMINOPHEN 500MG TAB 1000 MG PO ×2 (08:56→16:21)
[2024-11-12] MEDS: SENNA 8.6MG TABLET 8.6 MG PO ×2 (08:57→21:36)
[2024-11-12] MEDS: LABETALOL 100MG TABLET 200 MG PO ×2 (08:57→21:36)
[2024-11-12 09:04] LABS: Activated Partial Thrombo Time 27.9 seconds (22.8-30.6); INR 0.86 (0.9-1.1); Prothrombin Time 9.8 seconds (10.1-12.5)
[2024-11-12 09:34] LABS: Uric Acid 5.6 mg/dl (2.5-6.2)
[2024-11-12 12:18] LABS: Fibrinogen 430 mg/dL (208.1-352.0)
--- NOTE | 2024-11-12 13:09 | P.PN_ITS ---
Subjective *Date: 11/12/24 *Time: 13:09 Interval history: PPD # 2 s/p Feeling well. Pain controlled. Breast and formula feeding. Lochia is light. Voiding without difficulty and passing flatus. Tolerating regular diet. Denies fever/chills, chest pain and shortness of breath. No headaches, vision changes, lightheadedness/dizziness. Admits to lower extremity swelling. No calf pain. Ambulating well ad malcolm. Medical Exam Vital signs and Labs for Last 24 Hours: Vital Signs Temp Pulse Resp BP Pulse Ox O2 Del Method 11/12/24 12:22 98.1 F 88 16 146/83 H 97 Room Air 11/12/24 08:32 97.9 F 77 16 146/92 H 97 Room Air 11/12/24 04:14 98.5 F 82 20 141/84 H 97 Room Air 11/12/24 01:26 98.0 F 72 17 123/67 97 Room Air 11/11/24 20:16 98.0 F 76 19 147/88 H 97 Room Air 11/11/24 16:40 97.8 F 80 18 135/85 98 Room Air Laboratory Results - last 24 hr 11/09/24 13:50: RPR w/Rflx to Titer Nonreactive 11/12/24 07:39: WBC 11.2 H, RBC 3.13 L, Hgb 7.8 L, Hct 24.4 L, MCV 78.0 L, MCH 24.9 L, MCHC 32.0, RDW 16.0, Plt Count 229, MPV TNP, Neut % (Auto) 68.5, Lymph % (Auto) 18.1, [place] % (Auto) 10.6 H, Eos % (Auto) 0.8, Baso % (Auto) 0.4, Neut # (Auto) 7.6, Lymph # (Auto) 2.0, [place] # (Auto) 1.2 H, Eos # (Auto) 0.1, Baso # (Auto) 0.0, PT 9.8 L, INR 0.86 L, APTT 27.9, Fibrinogen 430 H, Sodium 137, Potassium 3.8, Chloride 107, Carbon Dioxide 24, Anion Gap 9.8, BUN 7, Creatinine 0.50 L, Estimated Creat Clear 138, Estimated GFR 153, Est GFR ( Amer) 185, Glucose 76, Uric Acid 5.6, Calcium 8.5, Total Bilirubin 0.2, AST 28, ALT 15 D, Alkaline Phosphatase 100, Total Protein 5.7 L, Albumin 2.8 L, Globulin 2.9, Albumin/Globulin Ratio 1.0 L I & O for Labs for Last 24 Hours: Intake & Output 11/09/24 11/10/24 11/11/24 11/12/24 23:59 23:59 23:59 23:59 Output Total 450 / 450 Balance -450 / -450 Weight 239 lb Head: Present atraumatic and normocephalic ENT: Present normal exam Neck: Present full ROM Respiratory: Present CTA bilaterally and normal respiratory effort Cardiac: Present Reg Rate and Rhythm GI: Present soft; Absent distention or tenderness Rectal (female): Present deferred (female): Present deferred Extremities: Present full ROM and edema (+ 2 bilateral lower extremity edema ); Absent calf tenderness Neuro: Present alert, awake and moves all extremities Assessment and Plan *Assessment and plan (1) Status post vaginal delivery: Status: Acute Category: Surgical (2) Chronic hypertension affecting : Status: Acute Category: Medical Code(s): O10.919 - Unspecified pre-existing hypertension complicating , unspecified trimester (3) Gestational diabetes mellitus (GDM) affecting , antepartum: Problem Comment: on Glyburide Status: Acute Category: Medical Code(s): O24.419 - Gestational diabetes mellitus in , unspecified control (4) Maternal obesity syndrome, antepartum: Status: Acute Category: Medical Code(s): O99.210 - Obesity complicating , unspecified trimester (5) Attention Deficit Hyperactivity Disorder (ADHD): Status: Acute Qualifiers: Attention deficit-hyperactivity disorder type: unspecified Qualified Code(s): F90.9 - Attention-deficit hyperactivity disorder, unspecified type Category: Medical Code(s): F90.9 - Attention-deficit hyperactivity disorder, unspecified type (6) Generalized anxiety disorder: Status: Acute Category: Medical Code(s): F41.1 - Generalized anxiety disorder (7) Acute blood loss anemia (ABLA): Status: Acute Category: Medical Code(s): D62 - Acute posthemorrhagic anemia Plan Continue routine care BP mild range, 140's/80-90's, on Labetalol 200 mg PO q 12 hours. Asymptomatic. AM PIH labs within normal limits. Continue Labetalol 200 mg PO q 12 hours Plan d/c home tomorrow with BP check on unless BP becomes elevated or she becomes symptomatic
[2024-11-12] MEDS: PRENATAL MULTIVITAMIN W/IRON 1 EACH PO (16:22)
[2024-11-12] MEDS: LABETALOL 5MG/ML 20ML MDV 20 MG IV (18:26)
[2024-11-12] MEDS: MAGNESIUM SULFATE IN WATER 4 GM/50 ML PIGGYBACK IV (18:47)
[2024-11-12] MEDS: MAGNESIUM SULFATE IN WATER 20 GM/500 ML IV.SOLN IV (19:04)
[2024-11-12] MEDS: LACTATED RINGERS 1000ML 1,000 ML 75 ML IV (21:36)
[2024-11-12 23:42] LABS: Magnesium 4.1 mg/dl (1.6-2.3)
[2024-11-13] VITALS (9 sets, daily range): BP systolic 115–145; BP diastolic 65–84; PULSE 81–92; RESP 16–18; O2SAT 94–98
[2024-11-13] MEDS: ACETAMINOPHEN 500MG TAB 1000 MG PO ×3 (02:19→20:06)
[2024-11-13] MEDS: MAGNESIUM SULFATE IN WATER 20 GM/500 ML IV.SOLN IV ×2 (02:58→12:06)
[2024-11-13 06:02] LABS: Magnesium 4.7 mg/dl (1.6-2.3)
[2024-11-13] MEDS: LABETALOL 100MG TABLET 200 MG PO (07:57)
--- NOTE | 2024-11-13 08:40 | EXP.ACUTE.PN ---
Subjective *Date: 11/13/24 *Time: 09:09 Interval history: PPD # 3 s/p Doing okay. Admits to headache that started yesterday evening. Pain controlled. Breast and formula feeding. Lochia is light. Voiding without difficulty and passing flatus. Tolerating regular diet. Denies fever/chills, chest pain and shortness of breath. No headaches, vision changes, lightheadedness/dizziness. Admits to lower extremity swelling. No calf pain. Ambulating well ad malcolm. Medical Exam Vital signs and Labs for Last 24 Hours: Vital Signs Temp Pulse Resp BP BP Pulse Ox O2 Del Method 11/13/24 06:29 89 18 134/79 97 Room Air 11/13/24 05:35 88 18 137/78 94 L Room Air 11/13/24 04:47 88 18 131/81 94 L Room Air 11/13/24 03:36 91 H 16 115/65 98 Room Air 11/13/24 02:28 90 18 132/68 98 Room Air 11/13/24 01:32 81 16 121/65 94 L Room Air 11/13/24 00:43 84 16 145/81 H 94 L Room Air 11/12/24 23:25 80 16 144/86 H 99 Room Air 11/12/24 22:35 86 18 142/80 H 11/12/24 21:23 88 18 161/82 H 98 Room Air 11/12/24 20:11 83 18 153/93 H 98 Room Air 11/12/24 19:28 90 16 146/87 H 98 Room Air 11/12/24 19:10 14 155/83 H 11/12/24 19:04 162/80 H 11/12/24 18:58 87 163/88 H 97 Room Air 11/12/24 18:54 161/88 H 11/12/24 18:26 161/88 H 11/12/24 18:14 168/98 H 11/12/24 17:58 86 161/88 H 11/12/24 16:43 98.2 F 90 18 155/96 H 97 Room Air 11/12/24 12:22 98.1 F 88 16 146/83 H 97 Room Air Intake and Output 11/12/24 11/13/24 11/13/24 23:59 07:59 15:59 Intake Total 480 / 480 1992 Output Total 700 / 700 800 / 800 Balance -220 / -220 1193 / 1193 Intake: Intake, Oral Amount 480 / 480 Intake, Total IV Amount 1992 Lactated Ringers 1000ML 1,000 871 / 871 ml @ 75 mls/hr IV .[id number] [facility] Rx#:[id number] Magnesium Sulfate in Water 20 1122 / 1122 gm In 500 ml @ 2.5 GM/HR 62.5 mls/hr IV .Q8H [facility]SE Rx#:[id number] Output: Output, Urine Amount 700 / 700 800 / 800 Laboratory Results - last 24 hr 11/09/24 13:50: Crossmatch (AHG) See Detail 11/12/24 07:39: PT 9.8 L, INR 0.86 L, APTT 27.9, Fibrinogen 430 H, Glucose 76, Uric Acid 5.6, Calcium 8.5 11/12/24 23:05: Magnesium 4.1 H 11/13/24 05:42: Magnesium 4.7 H D I & O for Labs for Last 24 Hours: Intake & Output 11/10/24 11/11/24 11/12/24 11/13/24 23:59 23:59 23:59 23:59 Intake Total 480 / 480 1992 Output Total 450 / 450 700 / 700 800 / 800 Balance -450 / -450 -220 / -220 1193 / 1193 Head: Present atraumatic and normocephalic ENT: Present normal exam Neck: Present normal inspection and full ROM Respiratory: Present CTA bilaterally and normal respiratory effort Cardiac: Present Reg Rate and Rhythm GI: Present soft; Absent distention or tenderness Rectal (female): Present deferred (female): Present deferred Extremities: Present full ROM and edema (+3 bilateral lower extremity edema); Absent calf tenderness Neuro: Present alert, awake and moves all extremities Assessment and Plan *Assessment and plan (1) Status post vaginal delivery: Status: Acute Category: Surgical (2) Chronic hypertension affecting : Status: Acute Category: Medical Code(s): O10.919 - Unspecified pre-existing hypertension complicating , unspecified trimester (3) Gestational diabetes mellitus (GDM) affecting , antepartum: Problem Comment: on Glyburide Status: Acute Category: Medical Code(s): O24.419 - Gestational diabetes mellitus in , unspecified control (4) Maternal obesity syndrome, antepartum: Status: Acute Category: Medical Code(s): O99.210 - Obesity complicating , unspecified trimester Plan Continue routine care Mag sulfate was started at 1849. Mag level 4 hours after bolus was 4.1. Mag was increased to 2.5 g.hr and repeat mag level was 4.7. Mag sulfate currently running at 2.5 g/hr. Repeat mag level this morning pending. Continue mag for 24 hours She reveived IV Labetalol yesterday evening BP mild and severe range. Labetalol increased to 300 mg PO q 12 hours Possible d/c home tomorrow
[2024-11-13] MEDS: LABETALOL 100MG TABLET 100 MG PO (08:42)
[2024-11-13 09:46] LABS: Magnesium 5.4 mg/dl (1.6-2.3)
[2024-11-13] MEDS: IBUPROFEN 400 MG TABLET 800 MG PO ×2 (12:06→20:06)
[2024-11-13] MEDS: PRENATAL MULTIVITAMIN W/IRON 1 EACH PO (18:24)
[2024-11-13] MEDS: BENZOCAINE-MENTHOL SPRAY 56GM CAN TP (20:06)
[2024-11-13] MEDS: WITCH HAZEL 40 PADS/BOX 1 EACH TP (20:06)
[2024-11-13] MEDS: LABETALOL 100MG TABLET 300 MG PO (20:07)
[2024-11-14 04:10] VITALS: BP 142/78; PULSE 87; RESP 18; TEMP 37.1; O2SAT 97
[2024-11-14] MEDS: LABETALOL 100MG TABLET 300 MG PO ×2 (04:10→12:14)
[2024-11-14] MEDS: IBUPROFEN 400 MG TABLET 800 MG PO (04:11)
[2024-11-14] MEDS: ACETAMINOPHEN 500MG TAB 1000 MG PO (04:12)
[2024-11-14 07:58] VITALS: BP 169/84; PULSE 101; RESP 18; TEMP 36.6; O2SAT 98
[2024-11-14 08:00] VITALS: BP 151/82
[2024-11-14] MEDS: NIFEdipine XL 30MG TABLET 30 MG PO (08:23)
--- NOTE | 2024-11-14 09:01 | P.DS_ITS ---
General Admission date:: 11/09/24 Discharge date: 11/14/24 HPI HPI HPI: PPD # 4 s/p Doing well. Pain controlled. Breast and formula feeding. Lochia is light. Voiding without difficulty and passing flatus. Tolerating regular diet. Denies fever/chills, chest pain and shortness of breath. No headaches, vision changes, lightheadedness/dizziness. Admits to lower extremity swelling. No calf pain. Ambulating well ad malcolm. Hospital Course Hospital Course Hospital Course: Ms Vy Oliveira is a 24 yo who presents to [facility] L[facility] for scheduled induction of labor secondary to CHTN on Labetalol 200 mg PO BID. also complicated by maternal obesity and GDMA2. She is taking Glyburide 2.5 mg PO daily. She has had good care. Baby is active. She underwent induction of labor with Cytotec followed by amniotomy and Pitocin. GBS negative. She had a normal spontaneous vaginal delivery on 11/10/24 at 2121. She delivered a live male baby, Duane, weighing 8 lb 11 oz. APGARs 5 (1 min), 9 (5 min) EBL 200 mL. Blood pressures increased to severe range and she developed a headache on PPD # 2. She received mag sulfate for 24 hours. Mag level reached therapeutic. Labetalol was first increased to 300 mg PO BID on PPD # 3 then later increased to 300 mg TID. On PPD # 4 BP was 169/84 followed by 151/82. Procardia 30 XL daily was started to add to Labetalol 300 mg TID. On PPD #1 AM Hgb was 8.2. She received Venofer 200 mg IV x 1 dose. On PPD # 4 she was doing well. Pain controlled. Breast and formula feeding. Light lochia. Voiding without difficulty and passing flatus. Tolerating regular diet. Denies fever/chills, chest pain and shortness of breath. No headaches, dizziness/lightheadedness or vision changes. Vital signs stable, afebrile. Heart regular rate and rhythm. Lungs clear to auscultation. Abdomen soft, nontender. She had +3 bilateral lower extremity swelling. No calf pain. Ambulating well ad malcolm. Normal hospital course. She was discharged to home on PPD # 4 with instructions to follow-up in the office in two days for BP check. Exam Data for Last 24 hours Vital signs and Labs for Last 24 Hours: Temp Pulse Resp BP Pulse Ox O2 Del Method 98.7 F 87 18 142/78 H 97 Room Air 11/14/24 04:10 11/14/24 04:10 11/14/24 04:10 11/14/24 04:10 11/14/24 04:10 11/14/24 04:10 Laboratory Results - last 24 hr 11/13/24 08:40: Magnesium 5.4 H D I & O for Last 24 hours: Intake & Output 11/11/24 11/12/24 11/13/24 11/14/24 23:59 23:59 23:59 23:59 Intake Total 480 / 480 3603 / 3603 Output Total 700 / 700 800 / 800 Balance -220 / -220 2803 / 2803 Constitutional Constitutional: no acute distress, obese and cooperative *Routine HEENT Exam Head: Present normocephalic and atraumatic Eye: Absent conjunctivae pink ENT: Present mucous membranes moist *Routine Neck Exam Neck: Present full ROM *Routine Respiratory Exam Respiratory: Present CTA bilaterally and normal respiratory effort *Routine Cardiovascular Exam Cardiovascular: Present RRR *Routine Abdominal Exam Abdominal: Present soft; Absent tenderness or distended *Routine Rectal Exam Patient deferred: visual exam *Routine Exam Patient deferred: external exam *Routine Extremities Exam Extremities: Present edema (+3 bilateral lower extremity swelling) and full ROM; Absent calf tenderness *Routine Neurological Exam Neurological: Present alert, moving all extremities and normal speech Routine Psychiatric Exam Psychiatric: Present normal affect and cooperative Results Data Completed and Pending Labs on day of discharge: Labs from last 24 hours 11/13/24 08:40 Magnesium 5.4 H D DS: Diagnosis Discharge Diagnosis (1) Status post vaginal delivery: Status: Acute (2) Chronic hypertension affecting : Status: Acute Code(s): O10.919 - Unspecified pre-existing hypertension complicating , unspecified trimester (3) Gestational diabetes mellitus (GDM) affecting , antepartum: Status: Acute Code(s): O24.419 - Gestational diabetes mellitus in , unspecified control Problem details: on Glyburide (4) Maternal obesity syndrome, antepartum: Status: Acute Code(s): O99.210 - Obesity complicating , unspecified trimester Meds Home Medications and Allergies Home Medications ?Medication ?Instructions ?Recorded ?Confirmed ?Type vits no.126-ferrous fum 1 tab PO DAILY 04/17/24 11/09/24 History 28 mg iron-folic acid 800 mcg tablet (Classic ) cetirizine 10 mg tablet 10 mg PO DAILY 05/31/24 11/09/24 History pantoprazole 40 mg tablet,delayed 40 mg PO DAILY #30 tabs 09/27/24 11/09/24 Rx release (Protonix) fluticasone furoate 27.5 1 spray intranasal DAILY #5.9 mL 09/28/24 11/09/24 Rx mcg/actuation nasal spray,suspension albuterol 90 mcg-budesonide 80 2 inh inhalation Q6HP PRN 11/09/24 11/09/24 History mcg/actuation HFA aerosol inhaler shortness of breath or wheezing (Airsupra) ondansetron 4 mg disintegrating 4 mg PO Q6HP PRN nausea and 11/09/24 11/09/24 History tablet vomiting ibuprofen 400 mg tablet 800 mg (2 x 400 mg) PO Q8HP PRN 11/14/24 Rx Mild To Moderate Pain (1-6) #20 tabs labetalol 300 mg tablet 300 mg PO TID #90 tabs 11/14/24 Rx nifedipine 30 mg tablet,extended 30 mg PO DAILY #30 tabs 11/14/24 Rx release 24 hr New Prescriptions to Start Prescriptions: Melissa Mann labetalol Melissa Aranda nifedipine Melissa Aranda Allergies Allergy/AdvReac Type Severity Reaction Status Date / Time No Known Allergies Allergy Verified 11/06/24 10:11 Discharge Plan Disposition Patient Disposition: Home, Self-Care Condition: Good Discharge Order Discharge Orders: Discharge Order (Routine); Ordered 11/14/24 Ordered By: Melissa Aranda Follow up Plan Follow up with: Melissa Aranda DO [Staff Physician] - 11/16/24 Prescriptions/Medication Reconciliation: New nifedipine 30 mg Tablet Extended Release 24hr 30 mg PO DAILY Qty: 30 1RF labetalol 300 mg tablet 300 mg PO TID Qty: 90 1RF ibuprofen 400 mg Tablet 800 mg PO Q8HP PRN (Reason: Mild To Moderate Pain (1-6)) Qty: 20 0RF Continued Classic 28 mg iron- 800 mcg tablet 1 tab PO DAILY cetirizine 10 mg tablet 10 mg PO DAILY fluticasone furoate 27.5 mcg/actuation spray,suspension 1 spray intranasal DAILY Qty: 5.9 0RF Rx Instructions: into each nostril pantoprazole [Protonix] 40 mg tablet,delayed release (DR/EC) 40 mg PO DAILY Qty: 30 2RF ondansetron 4 mg tablet,disintegrating 4 mg PO Q6HP PRN (Reason: nausea and vomiting) Airsupra 90-80 mcg/actuation HFA aerosol inhaler 2 inh inhalation Q6HP PRN (Reason: shortness of breath or wheezing) Discontinued glyburide 2.5 mg tablet 2.5 mg PO DAILY Qty: 30 4RF Rx Instructions: Take 30 minutes before breakfast or first meal of the day (DME) blood-glucose meter [Accu-Chek Guide Glucose Meter] Misc See Rx Instructions .ROUTE .MEDSUPPLY Qty: 1 0RF Rx Instructions: 4x daily (DME) lancing device with lancets [Accu-Chek Soft Dev Lancets] Kit See Rx Instructions .ROUTE .MEDSUPPLY Qty: 1 4RF Rx Instructions: 4x daily (DME) Accu-Chek SmartView Test Strip Strip See Rx Instructions .ROUTE .MEDSUPPLY Qty: 100 2RF Rx Instructions: 4x daily labetalol 200 mg tablet 200 mg PO BID Problem Reconciliation Problems Reviewed?: Yes Patient Discharge Instructions ACTIVITY: Limited activity DIET: continue same diet and regular diet Additional Instructions: Congratulations!! Discharge: 1. Take 800 mg Ibuprofen every 8 hours as needed for pain. You can also take 500-1000 mg of Tylenol in between doses, every 6-8 hours. 2. Nothing in the vagina for 6 weeks - no intercourse, douching or tampons. No tub baths/hot tubs or swimming pools 3. Reasons to return to L&D or call On-Call doctor - fever (greater than 100.4) - heavy vaginal bleeding (soaking through 1 pad in less than 2 hours) - vaginal discharge (malodorous and/or purulent) - severe headaches not resolved by medication or rest and leg tenderness/edema 4. depression/blues - Normal to feel anxious/overwhelmed for first 2 weeks - Talk to your doctor if: severe anxiety, trouble bonding with baby, withdrawing from other family members, thoughts of harming yourself or others Melissa Aranda DO [facility] [phone] Patient Instructions: Depression, Hemorrhage, DI for Labor and Delivery, Vaginal , DI for Pre-eclampsia, [facility] Post Discharge Instructions Print Language: Pashto Providers Primary Care Provider: Cristy Thornton Admaddi Provider: Melissa Aranda Attending Provider: Melissa Aranda
[2024-11-14 12:12] VITALS: BP 160/93
[2024-11-14 12:14] VITALS: BP 151/89
[2024-11-14 12:55] VITALS: BP 116/70
== END 2024-11-14 13:38 | disposition home or self-care (01) | DRG 807 ==
PROVIDERS: Admitting Provider Obstetrics & Gynecology; PCP Nurse Practitioner Family; Visit Provider Obstetrics & Gynecology
DX: O10.02 Pre-existing essential hypertension complicating childbirth (principal); Z37.0 Single live birth; O24.425 Gestational diabetes mellitus in childbirth, controlled by oral hypoglycemic drugs; O70.1 Second degree perineal laceration during delivery; Z3A.38 38 weeks gestation of pregnancy; O69.81X0 Labor and delivery complicated by cord around neck, without compression, not applicable or unspecified; O66.0 Obstructed labor due to shoulder dystocia; O99.214 Obesity complicating childbirth; E66.9 Obesity, unspecified
CPT/HCPCS: 36415; 59025; 80053; 81001; 82570; 82947; 82962; 83735; 84156; 84550; 85025; 85384; 85610; 85730; 86592; 86850; 87086; 94761; C1758; G0283; J0595; J1756; J1920; J2405; J7120; S0028

== ENCOUNTER 2025-01-16 10:59 | Outpatient (CLI) | payer OTHER, SELFPAY ==
--- OUTSIDE RECORDS SUMMARY | 2025-01-16 11:06 | XMS_ITS | Clinical Summary ---
Author Organization [facility] In iatives Address [address] [place] [address] Care Team Providers Care Mapping Editor Name Role Phone Unavailable Primary Care Provider Unavailabl e Social History Tobacco Use Types Packs/Day Years Used Date Smoking Tobacco: Never Assessed Interpersonal Safety Answer Date Record ed Family or friends hurt you Not on file 11/03 Family or friends insult you Not on file 11/2023 Family or friends threaten you Not on file 0 11/04/2023 Family or friends scream or curse at you Not on file 11/04/2023 Housing Stability Answer Date Recorded Living situation today Not on file Living situation problems Not on file 2023 Food Insecurity Answer Date Recorded Food run out past 12 months Not on file 11/2023 Food did not last past 12 months Not on file 11/04/2023 Employment Answer Date Recorded Help finding and keeping a job Not on file 0 11/04/2023 Family and Community Support Answer Keith e Recorded Help with Day to Day Activities Not on file 11/04/2023 Feeling Lonely or Isolated Not on file 11/03 Educational Attainment Answer Date Christiano rded Speak language other than Belgian at home Not on file 11/04/2023 Want help with school or training Not on file 11/04/2023 Depression Answer Date Recorded PHQ-2 Risk Not on file 11/04/2023 Disabilities Answer Date Recorded Difficulty concentrating Not on file 024 Difficulty doing errands alone Not on file 0 11/04/2023 Substance Use Answer Date Recorded Used prescription meds for non-medical reasons N ot on file 11/04/2023 Used illegal drugs past 12 months Not on file 11/04/2023 Comments Unknown Sex and Gender Information Value Date Recorded Sex Assigned at Not on file Legal Sex Female 9:34 AM CDT Gender Identity Not on file Sexual Orientation Not on file Plan of Treatment Health Maintenance Due Date Last Done Comments Depression Screening (12+) 2013 Tobacco Cessation Counseling and Screening (12+) 2013 HIV Screening 2016 Meningococcal B Vaccine (1 o f 2 - Standard) 2017 Hepatitis C Screening 2019 DTAP/TDAP/TD VACCINES (1 - Tdap) 2020 Pap Smear 2022 COVID-19 VACCINE (1 - 2023-2 5 season) 2024 Influenza Vaccine (Season Ended) 2025 Pneumococcal Vaccine: 0-49 Years Aged Out No longer eligible based on patient's age to complete this topic Insurance
--- OUTSIDE RECORDS SUMMARY | 2025-01-16 11:06 | XMS_ITS | Referral Summary ---
Author Organization [facility] In [facility]atives Address [address] [place] [address] Care Team Providers Care Technical Training Specialist Name Role Phone Unavailable Primary Care Provider [...] Date Christiano rded Speak language other than Japanese at home Not on file 11/04/2023 Want [...] Orientation Not on file Plan of Treatment Not on file Insurance R
--- OUTSIDE RECORDS SUMMARY | 2025-01-16 11:06 | XMS_ITS | Encounter Summary ---
Author Organization [facility] In [facility]atives Address [address] [place] [address] Care Team Providers Care Wire Drawing Machine Tender Name Role Phone Unavailable Primary Care Provider Unavailabl e Reason for Referral * Consultation (Routine) - Closed Specialty Diagnoses / Procedures Referred By Autumn t Referred To Contact Behavioral Health Diagnoses CARL (generalized anxiety disorder) Ashia De La Fuente APRN [address] [place] [address] Phone: tel: Dee Mathur, [place] [address] [place] [address] Phone: tel: fax: Referral ID Status Reason Start Date Expiration Date V isits Requested Visits Authorized [id number] Closed Specialty Services Required 11/04/2023 11/03/2024 1 1 Encounter Details Date Type Department Care Team (Late st Contact Info) Description 11/04/2023 Outside Orders [facility] Central Scheduling [address] [place] [id number] Ashia De La Fuente APRN [address] [place] [address] CARL (generalized anxiety disorder) (Primary Dx) Social History Tobacco Use Types Packs/Day Years [...] Date Christiano rded Speak language other than Nauruan at home Not on file 11/04/2023 Want [...] on file Sexual Orientation Not on file documented as of this encounter Plan of Treatment Scheduled Referrals Name Type Priority Associated Diagnoses Order Schedule Ambulatory referral to Behavioral Health Outpatient Referral Routine CARL (generalized anxiety disorder) Expected: 11/04/2023, Expires: 11/03/2024 documented as of this encounter Visit Diagnoses Diagnosis CARL (generalized anxiety disorder)- Primary Generalized anxiety disorder documented in this encounter
[2025-01-16 11:52] LABS: Glucose,Fasting 93 mg/dl (74-100)
[2025-01-16 12:52] LABS: Glucose 1 Hour 118 mg/dL (74-100)
[2025-01-16 14:27] LABS: Glucose 2 Hour 62 mg/dL (74-100)
== END 2025-01-16 23:59 | disposition home or self-care (01) ==
LOC: LAB 11:01
PROVIDERS: PCP Nurse Practitioner Family; Visit Provider Obstetrics & Gynecology
DX: O24.419 Gestational diabetes mellitus in pregnancy, unspecified control (principal); Z3A.00 Weeks of gestation of pregnancy not specified
CPT/HCPCS: 36415; 82951

== ENCOUNTER 2025-01-31 07:30 | Outpatient (CLI) | payer OTHER, SELFPAY ==
--- NOTE | 2025-01-31 07:30 | US_ITS ---
PROCEDURE: US TRANSVAGINAL CLINICAL INDICATION: IUD placement COMPARISON: US US TRANSVAGINAL from 07/17/2019 FINDINGS: Transvaginal sonographic images of the pelvis were obtained. UTERUS: 7.6 cm x 5.4cmx 3.5cm anteverted with a combined endometrial thickness of 5.3mm. There is an IUD out of position within the cervix. LEFT OVARY: 3.1cmx2.0cmx2.4cm with a volume of 7.8ml. There are several small follicles in the left ovary. RIGHT OVARY: 4.2cmx 2.4cmx3.5cm with a volume of 18.3ml. There are multiple small follicles in the right ovary giving the ovary a polycystic appearance. There is a hyperechoic area within the ovary measuring 7.6 mm x 9.4 mm likely an old corpus luteum. Both ovaries are seen and appear normal. Doppler flow to both ovaries are seen. There is no fluid in the cul-de-sac. IMPRESSION: 1. Anteverted uterus normal in shape and size. The endometrium is thin measuring 5.3 mm. 2. There is an IUD that is out of position in the upper cervix. 3. Left ovary is seen and contains a few small follicles. Right ovary appears polycystic and there is a hyperechoic 9.4 mm area that is likely an old corpus luteum. 4. No fluid in the cul-de-sac. Dictated by: Joe Reinoso MD 01/31/2025 14:54 Joe Reinoso MD in [place] 01/31/2025 14:54
--- OUTSIDE RECORDS SUMMARY | 2025-01-31 07:43 | XMS_ITS | Referral Summary ---
Author Organization [employer] ([place], [place], [place], [place]) Address [address] [place] [address] Care Team Providers Care Cooper Apprentice Name Role Phone Unavailable Primary Care Provider Unavailabl e Social History Tobacco Use Types Packs/Day Years Used Date Smoking Tobacco: Never Assessed Food Insecurity Answer Date Recorded Food run [...] Date Christiano rded Speak language other than Malay at home Not on file 11/04/2023 Want help with school or training Not on file 11/04/2023 Substance Use Answer Date Recorded Used [...] Plan of Treatment Not on file Insurance [employer]
--- OUTSIDE RECORDS SUMMARY | 2025-01-31 07:43 | XMS_ITS | Encounter Summary ---
Author Organization [employer] ([place], [place], [place], [place]) Address [address] [place] [address] Care Team Providers Care Parts Person Name Role Phone Unavailable Primary Care Provider Unavailabl e Reason for Referral * Consultation (Routine) - Closed Specialty Diagnoses / Procedures Referred By Contac t Referred To Contact Behavioral Health Diagnoses CARL (generalized anxiety disorder) Ashia De La Fuente APRN [address] [place] [address] Phone: tel: Dee Mathur, MS [address] [place] [address] Phone: tel: fax: Referral ID Status Reason Start Date Expiration Date V isits Requested Visits Authorized [id number] Closed Specialty Services Required 11/04/2023 11/03/2024 1 1 Encounter Details Date Type Department Care Team (Late st Contact Info) Description 11/04/2023 Outside Orders [facility] Central Scheduling [address] [place] [address] Ashia De La Fuente APRN [address] [place] [address] CARL (generalized anxiety disorder) (Primary [...] Date Christiano rded Speak language other than Welsh at home Not on file 11/04/2023 Want [...]
--- OUTSIDE RECORDS SUMMARY | 2025-01-31 07:43 | XMS_ITS | Clinical Summary ---
Author Organization [employer] ([place], [place], [place], [place]) Address [address] [place] [address] Care Team Providers Care Fellmongery Worker Name Role Phone Unavailable Primary Care Provider [...] - 2023-2 5 season) 2024 Influenza Vaccine (#1) 2025 Pneumococcal Vaccine: 0-49 Years Aged Out No longer eligible based on patient's age to complete this topic Insurance [facility]
== END 2025-01-31 23:59 | disposition home or self-care (01) ==
LOC: RAD 07:31
PROVIDERS: PCP Nurse Practitioner Family; Visit Provider Obstetrics & Gynecology
DX: T83.32XA Displacement of intrauterine contraceptive device, initial encounter (principal); E28.2 Polycystic ovarian syndrome; Z30.430 Encounter for insertion of intrauterine contraceptive device
CPT/HCPCS: 76830